=== PATIENT | female | born 1950 | race African-American/Black ===

== ENCOUNTER 2016-11-28 16:23 | Emergency (ER) | payer MEDICARE, OTHER ==
[~2016-11-28 16:23] MED LIST: DEPA500T3 PO; LISI10TA3 PO; SERO400T PO
[2016-11-28 16:25] VITALS: BP 169/82; PULSE 107; RESP 16; TEMP 98.2; O2SAT 99
--- NOTE | 2016-11-28 16:33 | PD ---
Physical Exam Date Seen by Provider: Nov 28, 2016 Time Seen by Provider: 16:30 Data Data Last Documented VS Vital Signs Date Time Temp Pulse Resp B/P Pulse Ox O2 Delivery O2 Flow Rate FiO2 11/28/16 16:56 97 11/28/16 16:25 98.2 107 16 169/82 [facility] Supervised Visit with MICHELLE: No Narrative Course 65 YO F with complaint of "daughter states that I'm acting strangely." Patient states this is a lie. She states that she has been taking all her medications as prescribed. Patient oriented to time, place, self. Patient endorses chronic pain, but denies other somatic complaints. Vitals reviewed. Patient seen in triage, awaiting bed placement. Silvana Cottrell Nov 28, 2016 16:33
--- NOTE | 2016-11-28 16:52 | PD ---
HPI Chief Complaint: Medical Clearance Time Seen by Provider: 16:36 Travel History International Travel<30 days: No Contact w/Intl Traveler<30days: No Traveled to known affect area: No History of Present Illness HPI The patient is a 65-year-old Br[place] female who presents to the emergency department for psychiatric evaluation. The patient states she was dropped off by her daughter for "acting strange". However, the patient states she lives alone, stated with her daughter last night, and that her daughter brought her to the emergency department today for psychiatric evaluation. The patient states she has not been acting strangely, she states every time she receives her check from the government, her daughter will drop her off at the emergency department. The patient does have a history of schizophrenia and states she has been compliant with her medications. She denies any suicidal ideation, homicidal ideation, hallucinations, or delusions. She denies any physical complaints including chest pain, shortness breath, nausea, vomiting, or abdominal pain. She does smoke marijuana occasionally, denies any alcohol use. The patient states she does not want to be seen by the psychiatric [facility] in the emergency department and that she has no current complaints. PFSH Past Medical History Arthritis: Yes Asthma: Yes Blood Disorders: No Bipolar Disorder: Yes Anxiety: Yes Depression: Yes Cardiovascular Problems: Yes (HTN) Cerebrovascular Accident: Yes (PER PAST HX) Diabetes: Yes Patient Takes Glucophage: No Diminished Hearing: No Endocrine: Yes Gastrointestinal Disorders: No Genitourinary: No Hepatitis: No Hypertension: Yes Immune Disorder: No Implanted Vascular Access Dvce: No Musculoskeletal: Yes Neurologic: Yes Psychiatric: Yes (Pt has history of psychiatric treatment/pt is followed by [facility]) Reproductive: No Respiratory: Yes Schizophrenia: Yes Sickle Cell Disease: No PNEUMOCCOCAL Vaccine (Year): 3 Menopausal: Yes : 2 Para: 2 Past Surgical History Cardiac Surgery: No Ear Surgery: No Endocrine Surgery: No Eye Surgery: No Genitourinary Surgery: No Gynecologic Surgery: No Neurologic Surgery: No Oral Surgery: No Thoracic Surgery: No Social History Alcohol Use: Yes (weekly) Tobacco Use: Yes (3 CIGARETTES DAILY) Substance Use: Yes (MARIJUANA) Allergies-Medications (Allergen,Severity, Reaction): Coded Allergies: No Known Allergies (Verified , 03/06/16) Reported Meds & Prescriptions Reported Meds & Active Scripts Active Reported Seroquel (Quetiapine Fumarate) 400 Mg Tab 600 Mg PO HS Lisinopril 10 Mg Tab 10 Mg PO DAILY Depakote ER (Divalproex Sodium) 500 Mg Srinivasa 500 Mg PO DAILY Review of Systems Except as stated in HPI: all other systems reviewed are Neg Cardiovascular: No: Chest Pain or Discomfort Respiratory: No: Shortness of Breath Gastrointestinal: No: Nausea, Vomiting, Abdominal Pain Neurologic: No: Change in Mentation Psychiatric: Positive: Disorder of Thought (history of schizophrenia), Substance Abuse (marijuana use occasionally), No: Suicidal Ideations, Mood Disorder, Homicidal Ideation, Other (denies any current hallucinations or delusions) Physical Exam Narrative GENERAL: Awake, alert, pleasant 65-year-old female who appears her stated age and is in no acute respiratory distress. SKIN: Focused skin assessment warm/dry. HEAD: Atraumatic. Normocephalic. EYES: Pupils equal and round. No injection or drainage. ENT: No nasal bleeding or discharge. Mucous membranes pink and moist. NECK: Trachea midline. No JVD. CARDIOVASCULAR: Regular rate and rhythm. No murmur appreciated. RESPIRATORY: No accessory muscle use. Clear to auscultation. Breath sounds equal bilaterally. MUSCULOSKELETAL: No obvious deformities. No clubbing. No cyanosis. No edema. NEUROLOGICAL: Awake and alert. No obvious cranial nerve deficits. Motor grossly within normal limits. Normal speech. Nonfocal. Patient is oriented to person, place, month, and expediter clerk. PSYCHIATRIC: Appropriate mood and affect; insight and judgment normal. Data Data Last Documented VS Vital Signs Date Time Temp Pulse Resp B/P Pulse Ox O2 Delivery O2 Flow Rate FiO2 11/28/16 16:25 98.2 107 16 169/82 99 MDM Medical Decision Making Medical Screen Exam Complete: Yes Emergency Medical Condition: Yes Medical Record Reviewed: Yes Differential Diagnosis Differential diagnosis includes schizoaffective disorder, schizophrenia, noncompliance, supratherapeutic Depakote level, substance induced mood disorder. Narrative Course I had a discussion with the patient regarding laboratory evaluation and psychiatric evaluation. However, the patient denies any physical complaints, is alert and oriented to person, place, month, and expediter clerk. She answers questions without difficulty and denies any suicidal ideation, homicidal ideation, hallucinations, or delusions. The patient would like to leave the emergency department and returned home. The patient meets no [place] act criteria. Therefore, patient will be discharged. She is advised to return if symptoms worsen or progress. We did attempt to find the daughter who brought her in to the emergency department, however, there is no family members in the waiting room or outside the emergency department when we attempted to find family. Diagnosis Primary Impression: Schizoaffective disorder Qualified Code: F25.9 - Schizoaffective disorder, unspecified type Additional Instructions: Follow-up with your primary physician and her psychiatrist. Return if symptoms worsen or progress. Med/Other Pt SpecificInfo: No Change to Meds Disposition: 01 DISCHARGE HOME Condition: Stable Ventura Starkey MD Nov 28, 2016 16:52
== END 2016-11-28 17:12 | disposition home or self-care (01) ==
LOC: NEPC 16:23
DX: F25.9 Schizoaffective disorder, unspecified (principal); I10 Essential (primary) hypertension; J45.909 Unspecified asthma, uncomplicated; M19.90 Unspecified osteoarthritis, unspecified site; F10.10 Alcohol abuse, uncomplicated; F17.210 Nicotine dependence, cigarettes, uncomplicated; F12.10 Cannabis abuse, uncomplicated
CPT/HCPCS: 99282

== ENCOUNTER 2017-03-28 18:09 | Emergency (ER) | payer MEDICARE, OTHER ==
[~2017-03-28] VITALS: Ht 162.6 cm; Wt 72.0 kg
[2017-03-28 18:11] VITALS: BP 192/93; PULSE 113; RESP 18; TEMP 97.6; O2SAT 96
[2017-03-29] MEDS ORDERED: BUSP10TA PO (10:25)
[2017-03-29] MEDS ORDERED: SERT-132 PO (10:25)
[2017-03-29] MEDS ORDERED: SERO300T PO (17:08)
[2017-03-29] MEDS ORDERED: BENZ0.5T PO (17:09)
[2017-03-29] MEDS ORDERED: PALI234P IM (17:10)
== END 2017-03-28 21:31 | disposition left against medical advice (07) ==
LOC: NED 18:09
DX: Z00.00 Encounter for general adult medical examination without abnormal findings (principal); Z53.21 Procedure and treatment not carried out due to patient leaving prior to being seen by health care provider

== ENCOUNTER 2017-03-29 09:28 | Inpatient (IN) | payer MEDICARE ==
[2017-03-29 09:30] VITALS: BP 172/100; PULSE 87; RESP 18; TEMP 98.8; O2SAT 99
[2017-03-29] MEDS ORDERED: SERT-132 PO (10:25)
[2017-03-29] MEDS ORDERED: BUSP10TA PO (10:25)
[2017-03-29 10:58] LABS: AUTOMATED NEUTROPHIL # 2.7 TH/MM3 (1.8-7.7); BASOPHIL % 0.4 % (0.0-2.0); EOSINOPHIL % 0.6 % (0.0-4.0); HEMATOCRIT 37.6 % (35.0-46.0); HEMO FLAGS AUTO DIFF; LYMPH % 45.9 % (9.0-44.0); LYMPHOCYTE # 3.2 TH/MM3 (1.0-4.8); MEAN CELL VOLUME 91.8 FL (80.0-100.0); MEAN CORPUSCULAR HEMOGLOBIN 31.2 PG (27.0-34.0); MEAN CORPUSCULAR HGB CONC 33.9 % (32.0-36.0); NEUT % 38.1 % (16.0-70.0); PLATELET COUNT 90 TH/MM3 (150-450); RED BLOOD COUNT 4.09 MIL/MM3 (4.00-5.30); RED CELL DISTRIBUTION WIDTH 15.5 % (11.6-17.2); WHITE BLOOD COUNT 7.1 TH/MM3 (4.0-11.0)
[2017-03-29 11:01] LABS: BLOOD, URINE NEG (NEG); GLUCOSE,URINE NEG (NEG); KETONE, URINE NEG (NEG); NITRITE,URINE NEG (NEG); SQUAMOUS EPITHELIAL CELL URINE <1 /hpf (0-5); URINE COLOR YELLOW (YELLW/STRAW)
--- NOTE | 2017-03-29 11:01 | PD ---
HPI Chief Complaint: Psychiatric Symptoms Time Seen by Provider: 10:53 Travel History International Travel<30 days: No Contact w/Intl Traveler<30days: No Traveled to known affect area: No History of Present Illness HPI 66yo F with PMH of schizoaffective disorder and bipolar disorder presents to the ED with c/o feeling depressed. Pt is here voluntarily and wants to be evaluated by psychiatrist. She does not have any suicidal thoughts right now. Denies any fever, chest pain, sob, n/v, abdominal pain, focal weakness or numbness. Denies any drug or alcohol use. PFSH Past Medical History Arthritis: Yes Asthma: Yes Blood Disorders: No Bipolar Disorder: Yes Anxiety: Yes Depression: Yes Cardiovascular Problems: Yes (HTN) Cerebrovascular Accident: Yes (PER PAST HX) Diabetes: Yes Patient Takes Glucophage: No Diminished Hearing: No Endocrine: Yes Gastrointestinal Disorders: No Genitourinary: No Hepatitis: No Hypertension: Yes Immune Disorder: No Implanted Vascular Access Dvce: No Musculoskeletal: Yes Neurologic: Yes Psychiatric: Yes (Pt has history of psychiatric treatment/pt is followed by [facility]) Reproductive: No Respiratory: Yes Schizophrenia: Yes Sickle Cell Disease: No Influenza Vaccination: No PNEUMOCCOCAL Vaccine (Year): 3 Menopausal: Yes : 2 Para: 2 Past Surgical History Cardiac Surgery: No Ear Surgery: No Endocrine Surgery: No Eye Surgery: No Genitourinary Surgery: No Gynecologic Surgery: No Neurologic Surgery: No Oral Surgery: No Thoracic Surgery: No Social History Alcohol Use: Yes (weekly) Tobacco Use: Yes Substance Use: Yes (MARIJUANA) Allergies-Medications (Allergen,Severity, Reaction): Coded Allergies: No Known Allergies (Verified Adverse Reaction, Unknown, 03/29/17) Reported Meds & Prescriptions Reported Meds & Active Scripts Active Reported Buspirone (Buspirone HCl) 10 Mg Tab 10 Mg PO TID Sertraline (Sertraline HCl) 50 Mg Tab 100 Mg PO DAILY Depakote ER (Divalproex Sodium) 500 Mg Srinivasa 500 Mg PO DAILY Review of Systems Except as stated in HPI: all other systems reviewed are Neg Physical Exam Narrative GENERAL: 66yo F not in distress. SKIN: Focused skin assessment warm/dry. HEAD: Atraumatic. Normocephalic. EYES: Pupils equal and round at 4mm bilaterally. EOMI. ENT: No nasal bleeding or discharge. Mucous membranes pink and moist. NECK: Trachea midline. No JVD. CARDIOVASCULAR: Regular rate and rhythm. No murmur appreciated. RESPIRATORY: No accessory muscle use. Clear to auscultation. Breath sounds equal bilaterally. GASTROINTESTINAL: Abdomen soft, non-tender, nondistended. MUSCULOSKELETAL: No obvious deformities. No clubbing. No cyanosis. No edema. NEUROLOGICAL: Awake and alert. No obvious cranial nerve deficits. Motor grossly within normal limits. Normal speech. PSYCHIATRIC: Appropriate mood and affect; insight and judgment normal. Data Data Last Documented VS Vital Signs Date Time Temp Pulse Resp B/P (MAP) Pulse Ox O2 Delivery O2 Flow Rate FiO2 03/29/17 13:16 95 16 99 Room Air 03/29/17 09:30 98.8 Orders Orders Complete Blood Count With Diff (03/29/17 09:36) Comprehensive Metabolic Panel (03/29/17 09:36) Urinalysis - C+S If Indicated (03/29/17 09:36) Psych Screen (03/29/17 09:36) Drug Screen, Random Urine (03/29/17 09:36) Diet Heart Healthy (03/29/17 Lunch) Metronidazole (Flagyl) (03/29/17 13:00) Labs Laboratory Tests Test 03/29/17 10:40 03/29/17 10:44 Blood Urea Nitrogen 11 MG/DL Creatinine 0.84 MG/DL Random Glucose 72 MG/DL Total Protein 8.5 GM/DL Albumin 3.6 GM/DL Calcium Level 8.5 MG/DL Alkaline Phosphatase 75 U/L Aspartate Amino Transf (AST/SGOT) 55 U/L Alanine Aminotransferase (ALT/SGPT) 37 U/L Total Bilirubin 0.3 MG/DL Sodium Level 138 MEQ/L Potassium Level 4.8 MEQ/L Chloride Level 106 MEQ/L Carbon Dioxide Level 26.3 MEQ/L Anion Gap 6 MEQ/L Estimat Glomerular Filtration Rate 82 ML/MIN White Blood Count 7.1 TH/MM3 Red Blood Count 4.09 MIL/MM3 Hemoglobin 12.7 GM/DL Hematocrit 37.6 % Mean Corpuscular Volume 91.8 FL Mean Corpuscular Hemoglobin 31.2 PG Mean Corpuscular Hemoglobin Concent 33.9 % Red Cell Distribution Width 15.5 % Platelet Count 90 TH/MM3 Mean Platelet Volume 11.1 FL Neutrophils (%) (Auto) 38.1 % Lymphocytes (%) (Auto) 45.9 % Monocytes (%) (Auto) 15.0 % Eosinophils (%) (Auto) 0.6 % Basophils (%) (Auto) 0.4 % Neutrophils # (Auto) 2.7 TH/MM3 Lymphocytes # (Auto) 3.2 TH/MM3 Monocytes # (Auto) 1.1 TH/MM3 Eosinophils # (Auto) 0.0 TH/MM3 Basophils # (Auto) 0.0 TH/MM3 CBC Comment AUTO DIFF Differential Comment AUTO DIFF CONFIRMED Platelet Estimate LOW Platelet Morphology Comment NORMAL Urine Color YELLOW Urine Turbidity CLEAR Urine pH 6.0 Urine Specific [place] 1.012 Urine Protein NEG mg/dL Urine Glucose (UA) NEG mg/dL Urine Ketones NEG mg/dL Urine Occult Blood NEG Urine Nitrite NEG Urine Bilirubin NEG Urine Urobilinogen 2.0 MG/DL Urine Leukocyte Esterase SMALL Urine RBC LESS THAN 1 /hpf Urine WBC 3 /hpf Urine Squamous Epithelial Cells <1 /hpf Urine Trichomonas RARE Microscopic Urinalysis Comment CULT NOT INDICATED Urine Opiates Screen NEG Urine Barbiturates Screen NEG Urine Amphetamines Screen NEG Urine Benzodiazepines Screen NEG Urine Cocaine Screen NEG Urine Cannabinoids Screen POS MDM Medical Decision Making Medical Screen Exam Complete: Yes Emergency Medical Condition: Yes Differential Diagnosis Depression vs. bipolar disorder Narrative Course 66yo F with history of schizoaffective and bipolar disorder presents for psych evaluation voluntarily. Grand daughter said she was admitted to psych last time and looking to stay in psych unit today. Denies any other complaints. Labs reviewed, no leukocytosis. Mild thrombocytopenia, a little less than baseline. AST mildly elevated but pt has no abdominal pain. Utox is positive for cannabinoids. UA showed rare urine trichomonas. Will cover with flagyl PO. Pt is medically clear for psych evaluation. Diagnosis Primary Impression: Schizoaffective disorder Qualified Codes: F25.0 - Schizoaffective disorder, bipolar type Additional Impression: Trichomoniasis She Xiao DO Mar 29, 2017 11:01
[2017-03-29 11:05] LABS: COMMENT (UR) CULT NOT INDICATED; CULTURE IF INDICATED CULT NOT INDICATED
[2017-03-29 11:34] LABS: PLATELET ESTIMATE SMEAR LOW (NORMAL); PLATELET MORPHOLOGY NORMAL (NORMAL); SCAN/DIFF AUTO DIFF CONFIRMED
[2017-03-29 12:22] LABS: ANION GAP 6 MEQ/L (5-15); BICARBONATE 26.3 MEQ/L (21.0-32.0); CHLORIDE 106 MEQ/L (98-107); GLOMERULAR FILTRATION RATE 82 ML/MIN (>89); SODIUM (NA) 138 MEQ/L (136-145)
[2017-03-29 12:23] LABS: ALKALINE PHOSPHATASE 75 U/L (45-117); ALT (GPT) 37 U/L (10-53); AST (GOT) 55 U/L (15-37); BLOOD UREA NITROGEN 11 MG/DL (7-18); POTASSIUM 4.8 MEQ/L (3.5-5.1); TOTAL BILIRUBIN ADULT 0.3 MG/DL (0.2-1.0)
[2017-03-29] MEDS ORDERED: metroNIDAZOLE 500 MG TAB PO ONE (13:00)
[2017-03-29 13:16] VITALS: BP 217/95; PULSE 95; RESP 16; O2SAT 99
[2017-03-29] MEDS ORDERED: LISINOPRIL 10 MG TAB PO ONE (13:45)
[2017-03-29 14:46] VITALS: BP 164/73; PULSE 97; RESP 16; O2SAT 98
[2017-03-29] MEDS ORDERED: LORazepam 2 MG/ML VIAL IM PRN (16:30)
[2017-03-29] MEDS ORDERED: diphenhydrAMINE HCL 50 MG CAP PO PRN (16:30)
[2017-03-29] MEDS ORDERED: diphenhydrAMINE HCL 50 MG/ML VIAL IM PRN (16:30)
[2017-03-29] MEDS ORDERED: ACETAMINOPHEN 325 MG TAB PO PRN (16:30)
[2017-03-29] MEDS ORDERED: MAGNESIUM HYDROXIDE SUSP 30 ML CUP PO PRN (16:30)
[2017-03-29] MEDS ORDERED: LORazepam 1 MG TAB PO PRN (16:30)
[2017-03-29] MEDS ORDERED: ALUMINUM/MAGNESIUM/SIMETH 30 ML CUP PO PRN (16:30)
--- NOTE | 2017-03-29 16:43 | HHI.HP ---
Provisional Diagnosis Admission Date Belva I. Schizoaffective disorder, bipolar type Certification of Person's Competence To Provide Express and Informed Consent I have personally examined Fay Lee , a [facility] on, Mar 29, 2017 16:34. Express and informed consent means consent voluntarily given in writing, by a competent person, after sufficient explanation and disclosure of the subject matter involved to enable the person to make a knowing and willful decision without any element of force, fraud, deceit, duress, or other form of constraint or coercion. This person is 18 years of age or older, is not now known to be incompetent to consent to treatment with a guardian advocate, and does not have a health care surrogate or proxy currently making medical treatment decisions. I have found this person to be one of the following: [X] Competent to provide express and informed consent, as defined above, for voluntary admission to this facility and is competent to provide express and informed consent for treatment. He/she has the consistent capacity to make well reasoned, willful, and knowing decisions concerning his or her medical or mental health treatment. The person fully and consistently understands the purpose of the admission for examination/placement and is fully capable of personally exercising all rights assured [place] Incompetent to provide express and informed consent to voluntary admission, and this is incompetent to provide express and informed consent to treatment. The person must be transferred to involuntary status and a petition for a guardian advocate filed with the Circuit Court. [] Refusing to provide express and informed consent to voluntary admission but is competent to provide express and informed consent for treatment. The person must be discharged or transferred to involuntary status. Form shall be completed within 24 hours of a person's arrival at the receiving facility and filed in the clinical record of each person: 1. Admitted on a voluntary basis 2. Permitted to provide express and informed consent to his/her own treatment 3. Allowed to transfer from involuntary to voluntary status 4. Prior to permitting a person to consent to his or her own treatment after having been previously found incompetent to consent to treatment. History of Present Illness Capacity: Has Capacity HPI 66-year-old female presents voluntarily with symptoms of depression and suicidal ideation. Patient is well known to the staff here at [facility] and has been admitted for psychotic illness on multiple occasions. Usually, she is manic, highly agitated, verbose and psychotic. She presented last night with symptoms of depression and suicidality and requested her family bring her back today. Apparently they had to wait a long time last night and gave up due to frustration. Patient intermittently describes suicidal thinking. She does admit to current symptoms of depressed mood, anhedonia, anxiety, insomnia, feelings of hopelessness and helplessness, decreased self-esteem, social withdrawal, decreased energy, and problems with concentration and attention. She has been smoking marijuana but this is felt to be a self medicating issue as the patient does not have a significant history of alcohol or drug abuse. Review of Systems ROS Limitations: Clinical Condition Psychiatric: COMPLAINS OF: Anxiety, Depression Except as stated in HPI: all other systems reviewed are Neg Past Psych History Psychological trauma history Unknown for psychological trauma. Patient has been admitted on multiple occasions for psychosis and agitation. Violence risk - others (6 mos) Minimal at this time Violence risk - self (6 mos) GENERAL: SKIN: Warm and dry. HEAD: Normocephalic. EYES: No scleral icterus. No injection or drainage. NECK: Supple, trachea midline. No JVD or lymphadenopathy. CARDIOVASCULAR: Regular rate and rhythm without murmurs, gallops, or rubs. RESPIRATORY: Breath sounds equal bilaterally. No accessory muscle use. GASTROINTESTINAL: Abdomen soft, non-tender, nondistended. MUSCULOSKELETAL: No cyanosis, or edema. BACK: Nontender without obvious deformity. No CVA tenderness. Substance Abuse History Drugs/Alcohol past 12 months Denied but is positive for cannabinoids. Past Family Social History Coded Allergies: No Known Allergies (Verified Adverse Reaction, Unknown, 03/29/17) Reported Medications Buspirone (Buspirone) 10 Mg Tab, 10 MG PO TID for Anxiety, TAB 0 Refills 03/29/17 Sertraline (Sertraline) 50 Mg Tab, 100 MG PO DAILY, #30 TAB 0 Refills 03/29/17 Divalproex ER (Depakote ER) 500 Mg Srinivasa, 500 MG PO DAILY for Control Seizures, #30 TAB 0 Refills 03/06/16 Discontinued Reported Medications Quetiapine (Seroquel) 400 Mg Tab, 600 MG PO HS, #60 TAB 0 Refills 03/06/16 Lisinopril (Lisinopril) 10 Mg Tab, 10 MG PO DAILY, #30 TAB 0 Refills 03/06/16 Family Psych History Positive for/psychotic illness Social History Patient is unemployed and disabled from work. She has a long history of diagnoses including schizophrenia, schizoaffective disorder, etc. her daughter and granddaughter are with her and spoke with this physician and the nurse, Pau. According to nurse Pau, it is quite unusual to see patient this depressed. Patient's Strengths (min. 2) Verbal and has access to healthcare. Physical Exam GENERAL: SKIN: Warm and dry. HEAD: Normocephalic. EYES: No scleral icterus. No injection or drainage. NECK: Supple, trachea midline. No JVD or lymphadenopathy. CARDIOVASCULAR: Regular rate and rhythm without murmurs, gallops, or rubs. RESPIRATORY: Breath sounds equal bilaterally. No accessory muscle use. GASTROINTESTINAL: Abdomen soft, non-tender, nondistended. MUSCULOSKELETAL: No cyanosis, or edema. BACK: Nontender without obvious deformity. No CVA tenderness. Vital Signs Vital Signs Date Time Temp Pulse Resp B/P (MAP) Pulse Ox O2 Delivery O2 Flow Rate FiO2 03/29/17 14:46 97 16 164/73 (103) 98 Room Air 03/29/17 09:30 98.8 Lab Results Test 03/29/17 10:40 03/29/17 10:44 Blood Urea Nitrogen 11 MG/DL Creatinine 0.84 MG/DL Random Glucose 72 MG/DL Total Protein 8.5 GM/DL Albumin 3.6 GM/DL Calcium Level 8.5 MG/DL Alkaline Phosphatase 75 U/L Aspartate Amino Transf (AST/SGOT) 55 U/L Alanine Aminotransferase (ALT/SGPT) 37 U/L Total Bilirubin 0.3 MG/DL Sodium Level 138 MEQ/L Potassium Level 4.8 MEQ/L Chloride Level 106 MEQ/L Carbon Dioxide Level 26.3 MEQ/L Anion Gap 6 MEQ/L Estimat Glomerular Filtration Rate 82 ML/MIN White Blood Count 7.1 TH/MM3 Red Blood Count 4.09 MIL/MM3 Hemoglobin 12.7 GM/DL Hematocrit 37.6 % Mean Corpuscular Volume 91.8 FL Mean Corpuscular Hemoglobin 31.2 PG Mean Corpuscular Hemoglobin Concent 33.9 % Red Cell Distribution Width 15.5 % Platelet Count 90 TH/MM3 Mean Platelet Volume 11.1 FL Neutrophils (%) (Auto) 38.1 % Lymphocytes (%) (Auto) 45.9 % Monocytes (%) (Auto) 15.0 % Eosinophils (%) (Auto) 0.6 % Basophils (%) (Auto) 0.4 % Neutrophils # (Auto) 2.7 TH/MM3 Lymphocytes # (Auto) 3.2 TH/MM3 Monocytes # (Auto) 1.1 TH/MM3 Eosinophils # (Auto) 0.0 TH/MM3 Basophils # (Auto) 0.0 TH/MM3 CBC Comment AUTO DIFF Differential Comment AUTO DIFF CONFIRMED Platelet Estimate LOW Platelet Morphology Comment NORMAL Urine Color YELLOW Urine Turbidity CLEAR Urine pH 6.0 Urine Specific [place] 1.012 Urine Protein NEG mg/dL Urine Glucose (UA) NEG mg/dL Urine Ketones NEG mg/dL Urine Occult Blood NEG Urine Nitrite NEG Urine Bilirubin NEG Urine Urobilinogen 2.0 MG/DL Urine Leukocyte Esterase SMALL Urine RBC LESS THAN 1 /hpf Urine WBC 3 /hpf Urine Squamous Epithelial Cells <1 /hpf Urine Trichomonas RARE Microscopic Urinalysis Comment CULT NOT INDICATED Urine Opiates Screen NEG Urine Barbiturates Screen NEG Urine Amphetamines Screen NEG Urine Benzodiazepines Screen NEG Urine Cocaine Screen NEG Urine Cannabinoids Screen POS Mental Status Examination Appearance: Appropriate Consciousness: Alert Orientation: x4 Motor Activity: Normal gait Speech: Unremarkable Language: Adequate Fund of Knowledge: Adequate Attention and Concentration: Adequate Memory: Unremarkable Mood: Sad Affect: Sad Thought Process & Associations: Intact Thought Content: Bizarre thinking, Ideas of reference Hallucination Type: None Delusion Type: None Suicidal Ideation: Yes Suicidal Plan: No Suicidal Intention: No Homicidal Ideation: No Homicidal Plan: No Homicidal Intention: No Insight: Fair Judgment: Impulsive Assessment & Plan Problem List: (1) Schizoaffective disorder, bipolar type ICD Codes: F25.0 - Schizoaffective disorder, bipolar type Assessment & Plan Estimated LOS: days. 66-year-old female with history of schizoaffective disorder/schizophrenia, currently depressed with multiple risk factors for suicide. In addition to suicidal ideation and symptoms of depression, she is of the age that puts her at greater risk for suicide. Her diagnosis puts her at risk for suicide. She has had recent medication changes which make her less stable. This is the second time she has asked to come to the emergency department in the last 24 hours. Therefore she is being admitted for further evaluation and treatment. This physician has ordered a CBC and comprehensive metabolic panel to determine if any infectious process or metabolic process is causing or contributing to her depression. Additionally, this physician ordered thyroid stimulating hormone levels, vitamin B-12 and vitamin D levels, to determine if deficiencies in these areas are causing or contributing to her depression. This physician also obtained a hospitalist consult as the patient has a history of multiple medical issues, including diabetes, and according to the medication reconciliation form, she is not on these medicines. An EKG was ordered to assess her cardiac conduction status prior to significantly altering her psychotropic medicines, which can adversely affect her cardiac conduction. This physician spoke with the patient's daughter, granddaughter and nurse, Pau. All are in agreement with this plan and all described the patient as being significantly depressed. Finally, case management will be involved to assist with further information gathering and disposition planning. Dane Prater MD Mar 29, 2017 16:43
[2017-03-29] MEDS ORDERED: DIVALPROEX SODIUM E.R. 500 MG TAB PO SCH (17:00)
[2017-03-29] MEDS ORDERED: SERO300T PO (17:08)
[2017-03-29] MEDS ORDERED: BENZ0.5T PO (17:09)
[2017-03-29] MEDS ORDERED: PALI234P IM (17:10)
[2017-03-29] MEDS: busPIRone HCL 10 MG TAB PO SCH (18:37)
[2017-03-29] MEDS: SERTRALINE HCL 100 MG TAB PO SCH (18:37)
[2017-03-29 18:41] VITALS: BP 121/66; PULSE 90; RESP 18; TEMP 97.8; O2SAT 98
[2017-03-29] MEDS ORDERED: QUEtiapine FUMARATE 300 MG TAB PO SCH (21:00)
[2017-03-30 05:56] VITALS: BP 141/63; PULSE 92; RESP 18; TEMP 98.1; O2SAT 99
[2017-03-30 08:38] LABS: AUTOMATED NEUTROPHIL # 1.5 TH/MM3 (1.8-7.7); BASOPHIL % 0.3 % (0.0-2.0); EOSINOPHIL % 1.1 % (0.0-4.0); LYMPH % 45.6 % (9.0-44.0); LYMPHOCYTE # 1.8 TH/MM3 (1.0-4.8); MEAN CELL VOLUME 90.4 FL (80.0-100.0); MEAN CORPUSCULAR HEMOGLOBIN 30.9 PG (27.0-34.0); MEAN CORPUSCULAR HGB CONC 34.2 % (32.0-36.0); MONO % 14.2 % (0.0-8.0); NEUT % 38.8 % (16.0-70.0); PLATELET COUNT 92 TH/MM3 (150-450); RED CELL DISTRIBUTION WIDTH 15.3 % (11.6-17.2); WHITE BLOOD COUNT 3.9 TH/MM3 (4.0-11.0)
[2017-03-30 08:46] LABS: HEMO FLAGS AUTO DIFF
[2017-03-30] MEDS: busPIRone HCL 10 MG TAB PO SCH ×2 (08:59→14:04)
[2017-03-30] MEDS: SERTRALINE HCL 100 MG TAB PO SCH (09:00)
[2017-03-30] MEDS ORDERED: DIVALPROEX SODIUM E.R. 500 MG TAB PO SCH (09:00)
[2017-03-30 09:27] LABS: ALT (GPT) 29 U/L (10-53); ANION GAP 9 MEQ/L (5-15); AST (GOT) 50 U/L (15-37); BICARBONATE 24.9 MEQ/L (21.0-32.0); BLOOD UREA NITROGEN 16 MG/DL (7-18); CHLORIDE 103 MEQ/L (98-107); GLOMERULAR FILTRATION RATE 72 ML/MIN (>89); POTASSIUM 3.9 MEQ/L (3.5-5.1); SODIUM (NA) 137 MEQ/L (136-145)
[2017-03-30 09:37] LABS: ALKALINE PHOSPHATASE 78 U/L (45-117); HDL CHOLESTEROL 43.2 MG/DL (40.0-60.0); LDL CHOLESTEROL 104 MG/DL (0-99); TOTAL BILIRUBIN ADULT 0.3 MG/DL (0.2-1.0)
[2017-03-30 09:40] LABS: PLATELET ESTIMATE SMEAR LOW (NORMAL); PLATELET MORPHOLOGY NORMAL (NORMAL); SCAN/DIFF AUTO DIFF CONFIRMED
--- NOTE | 2017-03-30 12:31 | HHI.DS ---
Psychiatry Discharge Summary Inpatient Psychiatric care?: Yes Advance Directive: No Reason Not Provided: DECLINED Mental Health AdvanceDirective: No Health Care Proxy: No Admission Admission Date Mar 29, 2017 at 16:30 Admission Diagnosis: (1) Cannabis abuse ICD Code: F12.10 - Cannabis abuse (2) Schizoaffective disorder, bipolar type ICD Code: F25.0 - Schizoaffective disorder, bipolar type Brief History 66-year-old female presents voluntarily with symptoms of depression and suicidal ideation. Patient is well known to the staff here at [place] and has been admitted for psychotic illness on multiple occasions. Usually, she is manic, highly agitated, verbose and psychotic. She presented last night with symptoms of depression and suicidality and requested her family bring her back today. Apparently they had to wait a long time last night and gave up due to frustration. Patient intermittently describes suicidal thinking. She does admit to current symptoms of depressed mood, anhedonia, anxiety, insomnia, feelings of hopelessness and helplessness, decreased self-esteem, social withdrawal, decreased energy, and problems with concentration and attention. She has been smoking marijuana but this is felt to be a self medicating issue as the patient does not have a significant history of alcohol or drug abuse. Tobacco Use In Past 30 Days: 4 or Less Cigarettes/Day Alcohol Use: Never Hospital Course Above brief history dictated by Dr. Dane Prater reviewed and agreed with. Patient seen by me today with nurse Casimiro. Patient did recognize me from multiple prior contacts over the years. States she was upset because she was not able to visit family in [facility] over things living because her children were busy with other activities and could not transporter up there. She states she slept well last night and those feelings of depression suicidality have resolved. He states she's been compliant with her medications. Compliant with her mental health appointments with Rigo CEDEÑO at [facility] outpatient. Denies any alcohol use but acknowledges frequent use of marijuana. She does have room place to return to. At this time patient no longer meets Fortune criteria will lift Fortune act patient to be discharged to herself. No Rx by me. Patient states she has sufficient supply of her own prescribed schedule medications at home. She is to follow-up with outpatient [facility]. Also recommend absolute abstinence, no marijuana. Referral also to NA Results Blood Pressure 141 / 63 Vital Signs Date Time Temp Pulse Resp B/P (MAP) Pulse Ox O2 Delivery O2 Flow Rate FiO2 03/30/17 05:56 98.1 92 18 141/63 (89) 99 03/29/17 14:46 Room Air Laboratory Tests Test 03/29/17 10:40 03/29/17 10:44 03/30/17 07:08 Random Glucose 72 MG/DL (74-106) Total Protein 8.5 GM/DL (6.4-8.2) 8.4 GM/DL (6.4-8.2) Aspartate Amino Transf (AST/SGOT) 55 U/L (15-37) 50 U/L (15-37) Estimat Glomerular Filtration Rate 82 ML/MIN (>89) 72 ML/MIN (>89) Platelet Count 90 TH/MM3 (150-450) 92 TH/MM3 (150-450) Mean Platelet Volume 11.1 FL (7.0-11.0) Lymphocytes (%) (Auto) 45.9 % (9.0-44.0) 45.6 % (9.0-44.0) Monocytes (%) (Auto) 15.0 % (0.0-8.0) 14.2 % (0.0-8.0) Monocytes # (Auto) 1.1 TH/MM3 (0-0.9) Platelet Estimate LOW (NORMAL) LOW (NORMAL) Urine Leukocyte Esterase SMALL (NEG) Urine Trichomonas RARE (NONE) Urine Cannabinoids Screen POS (NEG) White Blood Count 3.9 TH/MM3 (4.0-11.0) Neutrophils # (Auto) 1.5 TH/MM3 (1.8-7.7) Calcium Level 8.3 MG/DL (8.5-10.1) Triglycerides Level 157 MG/DL (42-150) LDL Cholesterol 104 MG/DL (0-99) 25-Hydroxy Vitamin D Total 15.9 ng/ML (30-100) Thyroid Stimulating Hormone 3rd Gen 4.790 uIU/ML (0.358-3.740) Laboratory Results Test 03/30/17 07:08 Cholesterol Level 179 MG/DL (120-200) HDL Cholesterol 43.2 MG/DL (40.0-60.0) LDL Cholesterol 104 MG/DL (0-99) Triglycerides Level 157 MG/DL (42-150) Summary of Procedures None done Pending results at discharge: No Medications # of Antipsychotic meds at D/C: 0 Approp Antipsych med options 1 - Minimum of three failed multiple trials of monotherapy. 2 - Documented plan to taper to monotherapy due to previous use of multiple meds OR cross-taper in progress at D/C. 3 - Documentation of augmentation of Clozapine. 4 - Justification other than those listed in allowable values 1-3, document here : Discharge Discharge Date: Mar 30, 2017 Discharge Diagnosis: (1) Cannabis abuse Diagnosis: Secondary ICD Code: F12.10 - Cannabis abuse Status: Acute (2) Schizoaffective disorder, bipolar type Diagnosis: Principal ICD Code: F25.0 - Schizoaffective disorder, bipolar type Pt Condition on Discharge: Stable Discharge Disposition: Discharge Home Discharge Instructions Diet Instructions: Heart Healthy Diet Activities you can perform: Regular-No Restrictions Scheduled Appointment: Sachin Rollins Discharge Time > 30 minutes Mental Status Examination Appearance: Appropriate Consciousness: Alert Orientation: x4 Motor Activity: Normal gait Speech: Unremarkable Language: Adequate Fund of Knowledge: Adequate Attention and Concentration: Adequate Memory: Unremarkable Mood: Sad Affect: Sad Thought Process & Associations: Intact Thought Content: Bizarre thinking, Ideas of reference Hallucination Type: None Delusion Type: None Suicidal Ideation: Yes Suicidal Plan: No Suicidal Intention: No Homicidal Ideation: No Homicidal Plan: No Homicidal Intention: No Insight: Fair Judgment: Impulsive Discharge/Advance Care Plan Health Problems: (1) Schizoaffective disorder, bipolar type Goals to promote your health * To prevent worsening of your condition and complications * To maintain your health at the optimal level Directions to meet your goals Take your medications as prescribed Follow your dietary instruction Follow activity as directed Keep your appointments as scheduled Take your immunizations and boosters as scheduled If your symptoms worsen call your PCP, if no PCP go to Urgent Care Center or Emergency Room For 16/11 questions related to your inpatient stay or results of tests pending at discharge, please contact Dr. Ludin Mora at Smoking is Dangerous to Your Health. Avoid second hand smoking Ludin Mora MD Mar 30, 2017 12:31
[2017-03-30 14:20] LABS: HEMOGLOBIN A1a 1.3 %; HEMOGLOBIN A1b 1.7 %; HEMOGLOBIN Ao 84.5 %; HEMOGLOBIN P3 3.8 %
== END 2017-03-30 15:45 | disposition home or self-care (01) | DRG 885 ==
LOC: NEPC 09:28 → NEDA 16:30 → H260 18:08
PROVIDERS: ADMIT Psychiatry & Neurology Psychiatry; ATTEND Psychiatry & Neurology Psychiatry
DX: F25.0 Schizoaffective disorder, bipolar type (principal); D69.6 Thrombocytopenia, unspecified; R45.851 Suicidal ideations; E11.9 Type 2 diabetes mellitus without complications; I10 Essential (primary) hypertension; A59.9 Trichomoniasis, unspecified; F41.9 Anxiety disorder, unspecified; F12.10 Cannabis abuse, uncomplicated; Z72.0 Tobacco use; J45.909 Unspecified asthma, uncomplicated; M19.90 Unspecified osteoarthritis, unspecified site; Z86.73 Personal history of transient ischemic attack (TIA), and cerebral infarction without residual deficits
CPT/HCPCS: 80053; 80061; 80307; 81001; 82306; 82607; 83036; 84443; 85025

== ENCOUNTER 2017-12-14 14:38 | Inpatient (IN) ==
[2017-12-14] MEDS ORDERED: Sod Chloride 0.9% Inj 1,000 ML IV.SIG ONE (14:48)
[2017-12-14 15:36] LABS: Baso % (Auto) 0.2 % (0.0-2.0); Eos % (Auto) 0.2 % (0.0-4.0); Hematocrit 35.2 % (35.0-46.0); Hemoglobin 12.2 gm/dL (11.6-15.3); Mean Corpuscular HGB Conc 34.7 % (32.0-36.0); Mean Corpuscular Hemoglobin 31.3 pg (27.0-34.0); Mean Corpuscular Volume 90.4 fL (80.0-100.0); Mean Platelet Volume 10.2 fL (7.0-11.0); Mono # (Auto) 0.9 th/mm3 (0.0-0.9); Mono % (Auto) 14.3 % (0.0-8.0); Neut # (Auto) 2.2 th/mm3 (1.8-7.7); Neut % (Auto) 36.3 % (16.0-70.0); Platelet Count 108 th/mm3 (150-450); Red Blood Count 3.89 mil/mm3 (4.00-5.30); Red Cell Distribution Width 14.9 % (11.6-17.2)
[2017-12-14 15:47] LABS: INR 1.1 Ratio; Prothrombin Time 10.7 sec (9.8-11.6)
[2017-12-14 15:50] LABS: Amphetamine Screen,Urine Neg (Neg); Barbiturate Screen,Urine Neg (Neg); Cannabinoid Screen,Urine Pos (Neg); Cocaine Screen,Urine Neg (Neg)
[2017-12-14 15:53] LABS: Bilirubin,Urine Negative (Negative); Clarity,Urine Clear (Clear); Color,Urine Yellow (Yellw/Straw); Glucose,Urine (UA) Negative (Negative); Hyaline Casts,Urine 7 /lpf (0-3); Leukocyte Esterase,Urine Negative (Negative); Mucus,Urine Few /lpf (Occasional); Nitrite,Urine Negative (Negative); Specific Gravity,Urine 1.016 (1.002-1.035); Squamous Epithelial Cell,Urine <1 /hpf (0-5); Urobilinogen,Urine 4 or Greater mg/dL (Less than 2)
[2017-12-14 15:56] LABS: Opiate Screen,Urine Neg (Neg)
--- NOTE | 2017-12-14 16:04 | CT ---
EXAM DATE: 12/14/2017 3:54 PM EDT AGE/SEX: 67 years / Female INDICATIONS: Altered mental status, confused CLINICAL DATA: This is the patient's initial encounter. Patient reports that signs and symptoms have been present for 1 day and indicates a pain score of 0/10. MEDICAL/SURGICAL HISTORY: None. None. RADIATION DOSE: 35.37 CTDI (mGy) COMPARISON: No prior exams available for comparison. TECHNIQUE: CT of the head without contrast. Using automated exposure control and adjustment of the mA and/or kV according to patient size, radiation dose was kept as low as reasonably achievable to ob tain optimal diagnostic quality images. DICOM format image data is available electronically for revi ew and comparison. FINDINGS: There is no evidence for intracranial hemorrhage, mass effect, mass lesions, or edema. The visualize d bony structures appear intact. Slight degree of brain atrophy is seen. Slight periventricular whit e matter changes are seen nonspecific mostly consistent with chronic small vessel ischemic changes. There are no signs of acute infarction for technique. CONCLUSION: Slight chronic small vessel ischemic and atrophic changes. . Electronically signed by: Mary Hadny MD 12/14/2017 4:02 PM EDT
[2017-12-14 16:05] LABS: Alanine Aminotransferase 18 U/L (10-53); Albumin 3.4 g/dL (3.4-5.0); Alkaline Phosphatase 55 U/L (45-117); Anion Gap 12 meq/L (5-15); Aspartate Aminotransferase 54 U/L (15-37); Blood Urea Nitrogen 24 mg/dL (7-18); Calcium 8.3 mg/dL (8.5-10.1); Carbon Dioxide 25.3 meq/L (21.0-32.0); Chloride 98 meq/L (98-107); Glomerular Filtration Rate 39 mL/min (>89); Glucose,Random 127 mg/dL (74-106); Sodium 135 meq/L (136-145); Total Protein 8.9 g/dL (6.4-8.2)
[2017-12-14 16:09] LABS: Potassium 2.6 meq/L (3.5-5.1)
[2017-12-14 16:16] LABS: Creatine Kinase 1191 U/L (26-192)
--- NOTE | 2017-12-14 16:18 | ED ---
HPI General Chief Complaint: Syncope Stated Complaint: Medical Time Seen by Provider: 12/14/17 14:48 Source: EMS Mode of arrival: EMS Limitations: altered mental status History of Present Illness HPI narrative: 66-year-old female per EMS was found down in the parking lot at [place], at that when she was tachycardic to 160s, also had an Accu-Chek of 137. The patient apparently was not visualize witnessed and so is unknown if the patient collapse had a syncopal episode or had a seizure or a if any of the above occurred. EMS performed a 12-lead EKG which showed lateral T-wave inversions in 1 aVL V4 V5 and V6. MD complaint: confusion and decreased responsiveness Onset (ago): unknown Timing confirmed by: other Severity: moderate Consistency of symptoms: waxing and waning Context: unknown Associated symptoms: other Treatments prior to arrival: IV fluid and other (Of note the patient family eventually came to the ER and stated that she had been treated for UTI and had been causing her to be altered recently) Related Data Allergies Allergy/AdvReac Type Severity Reaction Status Date / Time No Known Allergies Allergy Unverified 12/14/17 14:43 Review of Systems ROS Unobtainable ROS Unobtainable: unobtainable due to mental condition and unobtainable due to mental status PMFSH History History 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 SKIN: Warm and dry. HEAD: Atraumatic. Normocephalic. EYES: Pupils equal and round. No scleral icterus. No injection or drainage. ENT: No nasal bleeding or discharge... No hemotympanum bilaterally.. Dry oral mucous membranes NECK: Trachea midline. No JVD. CARDIOVASCULAR: Tachycardic rate and regular rhythm. no rubs or gallops RESPIRATORY: No accessory muscle use. Clear to auscultation. Breath sounds equal bilaterally. GASTROINTESTINAL: Abdomen soft, non-tender, nondistended. No rebound or guarding MUSCULOSKELETAL: Extremities without clubbing, cyanosis, or edema. No obvious deformities. NEUROLOGICAL: Awake and alertX1..... Normal speech. PSYCHIATRIC: Appropriate mood and affect; insight and judgment normal. Course Initial Documented Vital Signs Temperature 99.4 F 12/14/17 14:44 Pulse Rate 118 H 12/14/17 14:44 Respiratory Rate 28 H 12/14/17 14:44 Blood Pressure 132/61 12/14/17 14:44 Pulse Oximetry 97 12/14/17 14:44 Last Documented Vital Signs Temperature 99.4 F 12/14/17 14:44 Pulse Rate 91 H 12/14/17 16:17 Respiratory Rate 16 12/14/17 16:17 Blood Pressure 128/60 12/14/17 16:17 Pulse Oximetry 100 12/14/17 16:17 Medical Decision Making MDM Narrative Medical decision making narrative: CBC does not have any leukocytosis, no anemia , mild thrombocytopenia 108,000. Coagulation profile is within normal limits First set of cardiac enzymes negative. Normal lactic acid 1.2 , hypokalemia of 2.6, decreased renal function with a GFR of 39 and a creatinine of 1.6 tTtal CPK 1181 Ammonia of 45, may not be of any significance Of note although CK-MB was elevated at 25.8 the CK-MB percentage is only 2.2 which is more important index Medical Screen Exam Complete: Yes Emergency Medical Condition: Yes Differential Diagnosis Differential Diagnosis: Intracranial hemorrhage versus CVA versus STEMI versus rhabdo versus heat stroke versus electrolyte imbalance Medical Records Medical records reviewed: Yes I reviewed the patient's medical records. Lab Data Lab results reviewed: Yes I reviewed the patient's lab results. Result diagrams: 12/14/17 15:00 12/14/17 15:00 Lab Results 12/14/17 12/14/17 12/14/17 Range/Units 15:00 15:00 15:00 WBC 6.0 (4.0-11.0) th/mm3 RBC 3.89 L (4.00-5.30) mil/mm3 Hgb 12.2 (11.6-15.3) gm/dL Hct 35.2 (35.0-46.0) % MCV 90.4 (80.0-100.0) fL MCH 31.3 (27.0-34.0) pg MCHC 34.7 (32.0-36.0) % RDW 14.9 (11.6-17.2) % Plt Count 108 L (150-450) th/mm3 MPV 10.2 (7.0-11.0) fL Neut % (Auto) 36.3 (16.0-70.0) % Lymph % (Auto) 49.0 H (9.0-44.0) % Har[place] % (Auto) 14.3 H (0.0-8.0) % Eos % (Auto) 0.2 (0.0-4.0) % Baso % (Auto) 0.2 (0.0-2.0) % Neut # (Auto) 2.2 (1.8-7.7) th/mm3 Lymph # (Auto) 3.0 (1.0-4.8) th/mm3 Harney # (Auto) 0.9 (0.0-0.9) th/mm3 Eos # (Auto) 0.0 (0.0-0.4) th/mm3 Baso # (Auto) 0.0 (0.0-0.2) th/mm3 WBC Differential . Differential Comment Auto diff final PT 10.7 (9.8-11.6) sec INR 1.1 Ratio APTT 23.0 L (24.3-30.1) sec Sodium (136-145) meq/L Potassium (3.5-5.1) meq/L Chloride (98-107) meq/L Carbon Dioxide (21.0-32.0) meq/L Anion Gap (5-15) meq/L BUN (7-18) mg/dL Creatinine (0.50-1.00) mg/dL Estimated GFR (>89) mL/min Random Glucose (74-106) mg/dL Lactic Acid (0.4-2.0) mmol/L Calcium (8.5-10.1) mg/dL Total Bilirubin (0.2-1.0) mg/dL AST (15-37) U/L ALT (10-53) U/L Alkaline Phosphatase (45-117) U/L Ammonia (11-32) mcmol/L Total Creatine Kinase 1191 H (26-192) U/L CK-MB (CK-2) 25.8 H (0.5-3.6) ng/mL CK-MB (CK-2) % 2.2 (0.0-4.0) % Troponin I Less than 0.02 L (0.02-0.05) ng/mL Total Protein (6.4-8.2) g/dL Albumin (3.4-5.0) g/dL Urine Color (Yellw/Straw) Urine Clarity (Clear) Urine pH (5.0-8.5) Ur Specific [place] (1.002-1.035) Urine Protein (Neg-Trace) mg/dL Urine Glucose (UA) (Negative) mg/dL Urine Ketones (Negative) mg/dL Urine Occult Blood (Negative) Urine Nitrate (Negative) Urine Bilirubin (Negative) Urine Urobilinogen (Less than 2) mg/dL Ur Leukocyte Esterase (Negative) Urine RBC (0-3) /hpf Urine WBC (0-5) /hpf Ur Squamous Epith Cells (0-5) /hpf Hyaline Casts (0-3) /lpf Granular Casts (None) /lpf Urine Mucus (Occasional) /lpf Micro UA Comment Urine Culture Comments Urine Opiates Screen (Neg) Ur Barbiturates Screen (Neg) Ur Amphetamines Screen (Neg) U Benzodiazepines Scrn (Neg) Urine Cocaine Screen (Neg) U Cannabinoids Screen (Neg) Serum Alcohol Less than 3 (0-5) mg/dL 12/14/17 12/14/17 12/14/17 Range/Units 15:00 15:00 15:15 WBC (4.0-11.0) th/mm3 RBC (4.00-5.30) mil/mm3 Hgb (11.6-15.3) gm/dL Hct (35.0-46.0) % MCV (80.0-100.0) fL MCH (27.0-34.0) pg MCHC (32.0-36.0) % RDW (11.6-17.2) % Plt Count (150-450) th/mm3 MPV (7.0-11.0) fL Neut % (Auto) (16.0-70.0) % Lymph % (Auto) (9.0-44.0) % Harney % (Auto) (0.0-8.0) % Eos % (Auto) (0.0-4.0) % Baso % (Auto) (0.0-2.0) % Neut # (Auto) (1.8-7.7) th/mm3 Lymph # (Auto) (1.0-4.8) th/mm3 [place]ney # (Auto) (0.0-0.9) th/mm3 Eos # (Auto) (0.0-0.4) th/mm3 Baso # (Auto) (0.0-0.2) th/mm3 WBC Differential Differential Comment PT (9.8-11.6) sec INR Ratio APTT (24.3-30.1) sec Sodium 135 L (136-145) meq/L Potassium 2.6 L* (3.5-5.1) meq/L Chloride 98 (98-107) meq/L Carbon Dioxide 25.3 (21.0-32.0) meq/L Anion Gap 12 (5-15) meq/L BUN 24 H (7-18) mg/dL Creatinine 1.61 H (0.50-1.00) mg/dL Estimated GFR 39 L (>89) mL/min Random Glucose 127 H (74-106) mg/dL Lactic Acid 1.2 (0.4-2.0) mmol/L Calcium 8.3 L (8.5-10.1) mg/dL Total Bilirubin 0.4 (0.2-1.0) mg/dL AST 54 H (15-37) U/L ALT 18 (10-53) U/L Alkaline Phosphatase 55 (45-117) U/L Ammonia 45 H (11-32) mcmol/L Total Creatine Kinase (26-192) U/L CK-MB (CK-2) (0.5-3.6) ng/mL CK-MB (CK-2) % (0.0-4.0) % Troponin I (0.02-0.05) ng/mL Total Protein 8.9 H (6.4-8.2) g/dL Albumin 3.4 (3.4-5.0) g/dL Urine Color (Yellw/Straw) Urine Clarity (Clear) Urine pH (5.0-8.5) Ur Specific [place] (1.002-1.035) Urine Protein (Neg-Trace) mg/dL Urine Glucose (UA) (Negative) mg/dL Urine Ketones (Negative) mg/dL Urine Occult Blood (Negative) Urine Nitrate (Negative) Urine Bilirubin (Negative) Urine Urobilinogen (Less than 2) mg/dL Ur Leukocyte Esterase (Negative) Urine RBC (0-3) /hpf Urine WBC (0-5) /hpf Ur Squamous Epith Cells (0-5) /hpf Hyaline Casts (0-3) /lpf Granular Casts (None) /lpf Urine Mucus (Occasional) /lpf Micro UA Comment Urine Culture Comments Urine Opiates Screen (Neg) Ur Barbiturates Screen (Neg) Ur Amphetamines Screen (Neg) U Benzodiazepines Scrn (Neg) Urine Cocaine Screen (Neg) U Cannabinoids Screen (Neg) Serum Alcohol (0-5) mg/dL 12/14/17 12/14/17 Range/Units 15:15 15:15 WBC (4.0-11.0) th/mm3 RBC (4.00-5.30) mil/mm3 Hgb (11.6-15.3) gm/dL Hct (35.0-46.0) % MCV (80.0-100.0) fL MCH (27.0-34.0) pg MCHC (32.0-36.0) % RDW (11.6-17.2) % Plt Count (150-450) th/mm3 MPV (7.0-11.0) fL Neut % (Auto) (16.0-70.0) % Lymph % (Auto) (9.0-44.0) % [place] % (Auto) (0.0-8.0) % Eos % (Auto) (0.0-4.0) % Baso % (Auto) (0.0-2.0) % Neut # (Auto) (1.8-7.7) th/mm3 Lymph # (Auto) (1.0-4.8) th/mm3 [place] # (Auto) (0.0-0.9) th/mm3 Eos # (Auto) (0.0-0.4) th/mm3 Baso # (Auto) (0.0-0.2) th/mm3 WBC Differential Differential Comment PT (9.8-11.6) sec INR Ratio APTT (24.3-30.1) sec Sodium (136-145) meq/L Potassium (3.5-5.1) meq/L Chloride (98-107) meq/L Carbon Dioxide (21.0-32.0) meq/L Anion Gap (5-15) meq/L BUN (7-18) mg/dL Creatinine (0.50-1.00) mg/dL Estimated GFR (>89) mL/min Random Glucose (74-106) mg/dL Lactic Acid (0.4-2.0) mmol/L Calcium (8.5-10.1) mg/dL Total Bilirubin (0.2-1.0) mg/dL AST (15-37) U/L ALT (10-53) U/L Alkaline Phosphatase (45-117) U/L Ammonia (11-32) mcmol/L Total Creatine Kinase (26-192) U/L CK-MB (CK-2) (0.5-3.6) ng/mL CK-MB (CK-2) % (0.0-4.0) % Troponin I (0.02-0.05) ng/mL Total Protein (6.4-8.2) g/dL Albumin (3.4-5.0) g/dL Urine Color Yellow (Yellw/Straw) Urine Clarity Clear (Clear) Urine pH 5.0 (5.0-8.5) Ur Specific [place] 1.016 (1.002-1.035) Urine Protein Negative (Neg-Trace) mg/dL Urine Glucose (UA) Negative (Negative) mg/dL Urine Ketones Negative (Negative) mg/dL Urine Occult Blood Negative (Negative) Urine Nitrate Negative (Negative) Urine Bilirubin Negative (Negative) Urine Urobilinogen 4 or greater (Less than 2) mg/dL Ur Leukocyte Esterase Negative (Negative) Urine RBC 1 (0-3) /hpf Urine WBC 1 (0-5) /hpf Ur Squamous Epith Cells <1 (0-5) /hpf Hyaline Casts 7 (0-3) /lpf Granular Casts 1 (None) /lpf Urine Mucus Few H (Occasional) /lpf Micro UA Comment Cath-culture not ind Urine Culture Comments Cath-cult not ind Urine Opiates Screen Neg (Neg) Ur Barbiturates Screen Neg (Neg) Ur Amphetamines Screen Neg (Neg) U Benzodiazepines Scrn Pos H (Neg) Urine Cocaine Screen Neg (Neg) U Cannabinoids Screen Pos H (Neg) Serum Alcohol (0-5) mg/dL Imaging Data Radiologist's impression: Chest X-Ray 12/14/17 14:48 CONCLUSION: Underinflated examination with bibasilar interstitial opacities. This could represent interstitial pulmonary edema in the appropriate clinical setting. Head CT 12/14/17 14:50 CONCLUSION: Slight chronic small vessel ischemic and atrophic changes. . ECG Data EKG Prior to Arrival: No Attestation: I personally reviewed and interpreted this ECG as follows: Prior ECG tracings: not available for review Interpretation: Sinus tachycardia, 106 bpm, nonspecific ST-T wave changes Discharge Plan Discharge Disposition Patient Disposition: 30 Still Patient Discharge Condition Condition: Fair Discharge Details Diagnosis: Dehydration, Rhabdomyolysis, Acute hypokalemia Physicians Team ED Provider: Jean Barker Primary Care Provider: Ludin St Status ED Status: With Doctor
[2017-12-14 16:29] LABS: CKMB Percent 2.2 % (0.0-4.0); Creatine Kinase MB 25.8 ng/mL (0.5-3.6)
--- NOTE | 2017-12-14 16:36 | XR ---
EXAM DATE: 12/14/2017 3:25 PM EDT AGE/SEX: 67 years / Female INDICATIONS: Chest pain, short of breath, confusion CLINICAL DATA: This is the patient's initial encounter. Patient reports that signs and symptoms have been present for 1 day and indicates a pain score of Nonresponsive. MEDICAL/SURGICAL HISTORY: Non-responsive. Abdominal aortic aneurysm repair. COMPARISON: No prior exams available for comparison. FINDINGS: Portable AP views of the chest demonstrate a normal size cardiac silhouette. Lungs are underinflated and there are bibasilar interstitial opacities. No pleural effusion or pneumothorax is identified. Boogie joy and soft tissues demonstrate no acute finding. There are degenerative changes of the thoracic spi ne. CONCLUSION: Underinflated examination with bibasilar interstitial opacities. This could represent interstitial pu lmonary edema in the appropriate clinical setting. Electronically signed by: Ludin Rushing MD 12/14/2017 4:35 PM EDT
--- NOTE | 2017-12-14 17:53 | P.HP ---
History of Present Illness Service: [facility] hospitalist service Primary Care Physician: Ludin St, DO Chief Complaint: Apparent syncopal episodes?, Change in mental status. History of Present Illness: Patient is a very pleasant 67-year-old female with history of manic/depression on sertraline and Depakote, lives with her daughter who apparently this afternoon left the house. When asked about this patient states that she was just going to the store to check something out. Patient is amnesic of event. All she recalls was that she was laying on the floor and was brought in here. Patient denies any recent fever chills nausea vomiting or diarrhea. There was no incontinence. No seizures reported. Daughter arrived home and patient - Mom was not home. By instinct -daughter called the hospital -and true enough with her gut feeling patient was in the emergency room. Patient does not recall how she got here. Per daughter patient has been more forgetful lately "needs to be cued a lot". Daughter states that she gets like this more confused whenever she has a urinary tract infection. She was seen last Wednesday because she was acting odd and was seen by her PCP Dr. St and was diagnosed with UTI. Patient was started on Bactrim DS p.o. twice daily to be completed tonight. Her repeat UA here on admission today was normal. Daughter states that she takes sertraline and Depakote she is not sure of the amount though and is compliant with medications. Review of Systems Stated no fever no chills daughter states she is getting more forgetful and needs to be cued lately more than usual No nausea vomiting, no headache Patient denies any urinary symptoms denies any diarrhea denies any weakness PMFSH - History History Provided By: Medical Record - Medical History Medical History: Medical History (Last Reviewed 12/15/17 @ 09:06 by Mil Solis) Manic depression Medical history unknown - Tobacco History Smoking Status: Current every day smoker (About 3 cigarettes per day) Cigarettes Per Day: 3 - Alcohol History How Often Do You Have a Drink Containing Alcohol: Never - Substance Use History Substance History: No History of Abuse - Travel History Recent Travel in the [facility] Within the Last 8 Weeks: No Recent Travel Out of the Country Within the Last 8 Weeks: No Medications and Allergies Active Medications: Active Medications Potassium Chloride/Dextrose/Sod Cl (D5w/Ns + Kcl 20 Meq Inj) 1,000 mls @ 100 mls/hr IV.CONT .Q10H ABILIO Potassium Chloride (Kcl 20 Meq Premix Inj) 20 meq in 100 mls @ 50 mls/hr IV.SIG ONCE ONE Stop: 12/14/17 19:37 Potassium Chloride (Klor-Con 10) 30 meq PO ONCE ONE Stop: 12/14/17 17:40 Sodium Chloride (Ns Flush) 2 ml IV.FLUSH UNSCH PRN PRN Reason: FLUSH AFTER USING IV ACCESS Allergies Allergy/AdvReac Type Severity Reaction Status Date / Time No Known Allergies Allergy Unverified 12/14/17 14:43 Home Medications Medication Instructions Recorded Confirmed Type benztropine 2 mg PO HS 12/15/17 12/15/17 History buspirone 15 mg PO TID 12/15/17 12/15/17 History divalproex 1,000 mg PO HS 12/15/17 12/15/17 History quetiapine 600 mg PO HS 12/15/17 12/15/17 History sertraline 100 mg PO QAM 12/15/17 12/15/17 History Exam Vital signs: Vital Signs 12/14/17 14:44 12/14/17 14:51 12/14/17 15:47 Temperature 99.4 F Pulse Rate 118 H 114 H Respiratory Rate 28 H Blood Pressure 132/61 Pulse Oximetry 97 97 12/14/17 16:17 Temperature Pulse Rate 91 H Respiratory Rate 16 Blood Pressure 128/60 Pulse Oximetry 100 Intake & Output 12/13/17 12/14/17 12/14/17 18:59 06:59 18:59 Weight 72.575 kg Narrative: Patient is currently awake alert with blunted affect speech soft but clear follows all commands oriented to person place and year and time identified daughter at bedside Anicteric sclerae pink palpebral conjunctiva no facial asymmetry tongue midline dry oral mucosa neck was supple no nuchal rigidity chest lungs bilateral breath sounds no rales no wheezes Regular rhythm abdomen is soft good bowel sounds no guarding no rigidity extremities no clubbing no cyanosis no edema moves all extremities equally with good strength gait testing deferred grossly no sensory deficit Results - Labs CBC & Chem 7: 12/14/17 15:00 12/16/17 11:04 Labs: Laboratory Results - last 24 hr 12/14/17 12/14/17 12/14/17 15:00 15:00 15:00 WBC 6.0 RBC 3.89 L Hgb 12.2 Hct 35.2 MCV 90.4 MCH 31.3 MCHC 34.7 RDW 14.9 Plt Count 108 L MPV 10.2 Neut % (Auto) 36.3 Lymph % (Auto) 49.0 H [place] % (Auto) 14.3 H Eos % (Auto) 0.2 Baso % (Auto) 0.2 Neut # (Auto) 2.2 Lymph # (Auto) 3.0 [place] # (Auto) 0.9 Eos # (Auto) 0.0 Baso # (Auto) 0.0 WBC Differential . Differential Comment Auto diff final PT 10.7 INR 1.1 APTT 23.0 L Sodium Potassium Chloride Carbon Dioxide Anion Gap BUN Creatinine Estimated GFR Random Glucose Lactic Acid Calcium Total Bilirubin AST ALT Alkaline Phosphatase Ammonia Total Creatine Kinase 1191 H CK-MB (CK-2) 25.8 H CK-MB (CK-2) % 2.2 Troponin I Less than 0.02 L Total Protein Albumin Urine Color Urine Clarity Urine pH Ur Specific [place] Urine Protein Urine Glucose (UA) Urine Ketones Urine Occult Blood Urine Nitrate Urine Bilirubin Urine Urobilinogen Ur Leukocyte Esterase Urine RBC Urine WBC Ur Squamous Epith Cells Hyaline Casts Granular Casts Urine Mucus Micro UA Comment Urine Culture Comments Urine Opiates Screen Ur Barbiturates Screen Ur Amphetamines Screen U Benzodiazepines Scrn Urine Cocaine Screen U Cannabinoids Screen Serum Alcohol Less than 3 12/14/17 12/14/17 12/14/17 15:00 15:00 15:15 WBC RBC Hgb Hct MCV MCH MCHC RDW Plt Count MPV Neut % (Auto) Lymph % (Auto) [place] % (Auto) Eos % (Auto) Baso % (Auto) Neut # (Auto) Lymph # (Auto) [place] # (Auto) Eos # (Auto) Baso # (Auto) WBC Differential Differential Comment PT INR APTT Sodium 135 L Potassium 2.6 L* Chloride 98 Carbon Dioxide 25.3 Anion Gap 12 BUN 24 H Creatinine 1.61 H Estimated GFR 39 L Random Glucose 127 H Lactic Acid 1.2 Calcium 8.3 L Total Bilirubin 0.4 AST 54 H ALT 18 Alkaline Phosphatase 55 Ammonia 45 H Total Creatine Kinase CK-MB (CK-2) CK-MB (CK-2) % Troponin I Total Protein 8.9 H Albumin 3.4 Urine Color Urine Clarity Urine pH Ur Specific [place] Urine Protein Urine Glucose (UA) Urine Ketones Urine Occult Blood Urine Nitrate Urine Bilirubin Urine Urobilinogen Ur Leukocyte Esterase Urine RBC Urine WBC Ur Squamous Epith Cells Hyaline Casts Granular Casts Urine Mucus Micro UA Comment Urine Culture Comments Urine Opiates Screen Ur Barbiturates Screen Ur Amphetamines Screen U Benzodiazepines Scrn Urine Cocaine Screen U Cannabinoids Screen Serum Alcohol 12/14/17 12/14/17 15:15 15:15 WBC RBC Hgb Hct MCV MCH MCHC RDW Plt Count MPV Neut % (Auto) Lymph % (Auto) [place] % (Auto) Eos % (Auto) Baso % (Auto) Neut # (Auto) Lymph # (Auto) [place] # (Auto) Eos # (Auto) Baso # (Auto) WBC Differential Differential Comment PT INR APTT Sodium Potassium Chloride Carbon Dioxide Anion Gap BUN Creatinine Estimated GFR Random Glucose Lactic Acid Calcium Total Bilirubin AST ALT Alkaline Phosphatase Ammonia Total Creatine Kinase CK-MB (CK-2) CK-MB (CK-2) % Troponin I Total Protein Albumin Urine Color Yellow Urine Clarity Clear Urine pH 5.0 Ur Specific [place] 1.016 Urine Protein Negative Urine Glucose (UA) Negative Urine Ketones Negative Urine Occult Blood Negative Urine Nitrate Negative Urine Bilirubin Negative Urine Urobilinogen 4 or greater Ur Leukocyte Esterase Negative Urine RBC 1 Urine WBC 1 Ur Squamous Epith Cells <1 Hyaline Casts 7 Granular Casts 1 Urine Mucus Few H Micro UA Comment Cath-culture not ind Urine Culture Comments Cath-cult not ind Urine Opiates Screen Neg Ur Barbiturates Screen Neg Ur Amphetamines Screen Neg U Benzodiazepines Scrn Pos H Urine Cocaine Screen Neg U Cannabinoids Screen Pos H Serum Alcohol - Imaging Impressions Chest X-Ray 12/14/17 14:48 CONCLUSION: Underinflated examination with bibasilar interstitial opacities. This could represent interstitial pulmonary edema in the appropriate clinical setting. Head CT 12/14/17 14:50 CONCLUSION: Slight chronic small vessel ischemic and atrophic changes. . Caprini VTE Risk Assessment Caprini VTE Risk Assessment: Moderate/High Risk (score >= 2) Caprini Risk Assessment Model: Point Value = 1 Point Value = 2 Point Value = 3 Point Value = 5 Age 41-60 Minor surgery BMI > 25 kg/m2 Swollen legs Varicose veins or History of unexplained or recurrent spontaneous Oral contraceptives or hormone replacement Sepsis (< 1 month) Serious lung disease, including pneumonia (< 1 month) Abnormal pulmonary function Acute myocardial infarction Congestive heart failure (< 1 month) History of inflammatory bowel disease Medical patient at bed rest Age 61-74 Arthroscopic surgery Major open surgery (> 45 min) Laparoscopic surgery (> 45 min) Malignancy Confined to bed (> 72 hours) Immobilizing plaster cast Central venous access Age >= 75 History of VTE Family history of VTE Factor V Leiden Prothrombin [id number] Lupus anticoagulant Anticardiolipin antibodies Elevated serum homocysteine Heparin-induced thrombocytopenia Other congenital or acquired thrombophilia Stroke (< 1 month) Elective arthroplasty Hip, pelvis, or leg fracture Acute spinal cord injury (< 1 month) Prophylaxis Regimen: Total Risk Factor Score Risk Level Prophylaxis Regimen 0-1 Low Early ambulation 2 Moderate Order ONE of the following: *Sequential Compression Device (SCD) *Heparin 5000 units SQ BID 3-4 Higher Order ONE of the following medications: *Heparin 5000 units SQ TID *Enoxaparin/Lovenox 40 mg SQ daily (WT < 150 kg, CrCl > 30 mL/min) *Enoxaparin/Lovenox 30 mg SQ daily (WT < 150 kg, CrCl > 10-29 mL/min) *Enoxaparin/Lovenox 30 mg SQ BID (WT < 150 kg, CrCl > 30 mL/min) AND/OR *Sequential Compression Device (SCD) 5 or more Highest Order ONE of the following medications: *Heparin 5000 units SQ TID (Preferred with Epidurals) *Enoxaparin/Lovenox 40 mg SQ daily (WT < 150 kg, CrCl > 30 mL/min) *Enoxaparin/Lovenox 30 mg SQ daily (WT < 150 kg, CrCl > 10-29 mL/min) *Enoxaparin/Lovenox 30 mg SQ BID (WT < 150 kg, CrCl > 30 mL/min) AND *Sequential Compression Device (SCD) Assessment and Plan - Plan 67-year-old female presenting with Change in mental status possible apparent syncopal episode questionable seizure - now more awake- pr daughter Head CT was negative We will check MRI of the brain, check an EEG, carotid US, echo Check TSH B12 folate level- neurocognitive evaluation in a.m. rule out starting dementia Status post fall, syncopal episode rhabdomyolysis ? SZ patient received 1 L normal saline here at the ER. Start IV normal saline at 100 cc with potassium incorporation Recheck CK level in a.m. Check carotid ultrasound 2D echo. Check a d-dimer. If positive consider doing a CTA to rule out PE Check orthostatics in am Acute kidney injury. History of hypertension- Patient received 1 L normal saline bolus We will start IV fluid normal saline 100 cc an hour follow BMP On review of medications she is on hydrochlorothiazide. Will discontinue this per daughter who is a IT LEAD- she takes this irrregularly but did take this last 2 days monitor BP- if needs to start - will start on another type- not diuretic Hypokalemia - K 2.6 IV potassium 20 mEq. x 1 give p.o. potassium p.o. 1 and recheck electrolytes in the morning -On review of EMR patient apparently was on hydrochlorothiazide. Will discontinue this IVF with KCL History of manic/Depression - per daughter was on Sertraline and Depakote - we will confirm dose and restart - john restart her Depakote at 500 mg hs, Seroquel 50 mg daily Superficial skin abrasions status post fall on the left forearm and left knee -Bacitracin twice daily to areas. REcent UTI - completed course of bActrim - repeat UA now + cannabinoids- on UA - patient denies use PT eval and treat in am Heparin bid SQ for dvt prophylaxis
--- NOTE | 2017-12-14 18:52 | MR ---
EXAM DATE: 12/14/2017 6:43 PM EDT AGE/SEX: 67 years / Female INDICATIONS: . Fall. CLINICAL DATA: This is the patient's subsequent encounter. Patient reports that signs and symptoms h ave been present for 1 day and indicates a pain score of 0/10. MEDICAL/SURGICAL HISTORY: None. None. COMPARISON: [facility] [place], CT HEAD W/O CONTRAST, 12/14/2017. . TECHNIQUE: Multiplanar, multisequence examination of the brain was performed without contrast. FINDINGS: Cerebrum: The ventricles are normal for age. No evidence of midline shift, mass lesion, hemorrhage or acute infarction. No extraaxial fluid collections are seen. The pituitary gland and suprasellar cistern are normal in configuration. White Matter: No significant signal abnormalities are seen in the white matter. Posterior Fossa: The cerebellum and brainstem are intact. The 4th ventricle is midline. The cerebel lopontine angle is unremarkable. The cerebellar tonsils are normal in position. Diffusion Imaging: No focal areas of restricted diffusion are seen. No evidence of acute infarction . Extracranial: The visualized portions of the orbits and paranasal sinuses are unremarkable. CONCLUSION: 1. Negative noncontrast MRI of the brain. Electronically signed by: Minh Brantley MD 12/14/2017 6:51 PM EDT
[2017-12-14] MEDS: KCL 20 mEq/D5W/NaCl 0.9% Inj 1,000 ML IV.CONT SCH (19:20)
--- NOTE | 2017-12-14 19:55 | US ---
EXAM DATE: 12/14/2017 7:47 PM EDT AGE/SEX: 67 years / Female INDICATIONS: Syncope. CLINICAL DATA: This is the patient's initial encounter. Patient reports that signs and symptoms have been present for 1 day and indicates a pain score of 0/10. MEDICAL/SURGICAL HISTORY: . Syncope. . Unknown. COMPARISON: No prior exams available for comparison. VELOCITY PARAMETERS: ICA/CCA Ratio: Right 0.9 , Left 1.5 ICA: Right 74.6 cm/sec, Left 91.3 cm/sec CCA: Right 81.4 cm/sec, Left 60.9 cm/sec ECA: Right 114 cm/sec, Left 76.4 cm/sec Vertebral: Right 36 cm/sec antegrade, Left 40.4 cm/sec antegrade FINDINGS: Right Carotid: No significant plaque is visualized.The waveforms are within normal limits. Left Carotid: No significant plaque is visualized. The waveforms are within normal limits. Other: None. CONCLUSION: 1. Right Internal Carotid Artery: Findings indicate <50% stenosis. 2. Left Internal Carotid Artery: Findings indicate <50% stenosis. Electronically signed by: Minh Brantley MD 12/14/2017 7:53 PM EDT
[2017-12-14] MEDS ORDERED: Potassium Chlor 20 mEq Premix 20 MEQ/100 ML PIGGYBACK IV.SIG ONE (20:00)
[2017-12-14] MEDS: Heparin - SQ 10,000 UNITS/ML Vial SQ SCH (20:11)
[2017-12-14] MEDS: Divalproex 500 MG ER Tablet PO SCH (20:11)
--- NOTE | 2017-12-14 23:41 | ECG ---
Date Performed: 12/14/2017 Time Performed: 15:26:13 PTAGE: 67 years EKG: SINUS TACHYCARDIA MINIMAL VOLTAGE CRITERIA FOR LVH, CONSIDER NORMAL VARIANT NONSPECIFIC T-W AVE ABNORMALITY ABNORMAL RHYTHM ECG PREVIOUS TRACING : 11/27/2014 19.43 Compared to previous tracing, rate has increased, QT no lo nger prolonged DOCTOR: Alexis Roper Interpretating Date/Time 12/14/2017 23:40:04
[2017-12-15] MEDS: KCL 20 mEq/D5W/NaCl 0.9% Inj 1,000 ML IV.CONT SCH ×2 (06:34→15:16)
--- NOTE | 2017-12-15 08:45 | P.PN ---
Subjective Interval history: Follow-up for encephalopathy, syncope. The patient is currently awake, alert, oriented to person, [facility] in [place], president [place], but states the year is 2016. Patient states she remembers leaving the house to go to the store yesterday, and she remembers being very hot in the parking lot. She states she feels like she got overheated. She does not actually remember passing out. She states she does remember being transported to the emergency room. Discussed the patient's UDS positive for marijuana and benzos, the patient admits to smoking marijuana yesterday prior to going to store. Today she denies any headache, lightheadedness, dizziness, chest pain, shortness breath, or abdominal complaints. She reports compliance with her medications. She denies any recent changes to her medications. Physical Exam Vital signs: Vital Signs 12/14/17 14:44 12/14/17 14:51 12/14/17 15:47 Temperature 99.4 F Pulse Rate 118 H 114 H Respiratory Rate 28 H Blood Pressure 132/61 Pulse Oximetry 97 97 12/14/17 16:17 12/14/17 19:23 12/14/17 23:29 Temperature 98.1 F Pulse Rate 91 H 90 84 Respiratory Rate 16 20 16 Blood Pressure 128/60 166/70 H 119/58 L Pulse Oximetry 100 95 12/15/17 04:00 12/15/17 08:00 Temperature 98.1 F 97.8 F Pulse Rate 76 73 Respiratory Rate 18 16 Blood Pressure 114/57 L 132/63 Pulse Oximetry 100 98 Intake & Output 12/14/17 12/15/17 12/15/17 18:59 06:59 18:59 Intake Total 2380 / 2380 Output Total 200 / 200 Balance 2180 / 2180 Weight 72.575 kg 72.575 kg Intake: IV 2100 / 2100 D5W/NS + KCL 20 mEq Inj 1,000 1000 / 1000 ML @ 100 mls/hr IV.CONT .Q10H ABILIO Rx#:[id number] KCl 20 mEq Premix Inj 20 meq In 100 / 100 100 ml @ 50 mls/hr IV.SIG ONCE ONE Rx#:[id number] Oral 280 / 280 Output: Urine 200 / 200 Other: Weight On Admission 72.575 kg Narrative: GENERAL: Well-nourished, well-developed pleasant female patient in NAD. SKIN: Warm and dry. No rash. HEENT: Normocephalic. Atraumatic. Pupils equal and round. Mucous membranes pink and moist. NECK: Supple. Trachea midline. CARDIOVASCULAR: Regular rate and rhythm. No murmur appreciated. RESPIRATORY: No accessory muscle use. Clear to auscultation. Breath sounds equal bilaterally. GASTROINTESTINAL: Abdomen soft, non-tender, nondistended. Normoactive bowel sounds x4. MUSCULOSKELETAL: No obvious deformities. Extremities without clubbing, cyanosis , or edema. NEUROLOGICAL: Awake and alert, oriented x 3/4. No obvious cranial nerve deficits. Motor grossly within normal limits. Moving all extremities spontaneously. Normal speech. PSYCHIATRIC: Appropriate mood and affect; insight and judgment fair. - Urinary Catheter Management Indwelling Urethral Catheter Cath placed during this visit: yes Reason for continuing: Hourly intake/output Insertion date: 12/14/17 Insertion time: 14:50 Results - Labs CBC & Chem 7: 12/14/17 15:00 12/15/17 08:30 Laboratory Results - last 24 hr 12/14/17 12/14/17 12/14/17 15:00 15:00 15:00 WBC 6.0 RBC 3.89 L Hgb 12.2 Hct 35.2 MCV 90.4 MCH 31.3 MCHC 34.7 RDW 14.9 Plt Count 108 L MPV 10.2 Neut % (Auto) 36.3 Lymph % (Auto) 49.0 H [place] % (Auto) 14.3 H Eos % (Auto) 0.2 Baso % (Auto) 0.2 Neut # (Auto) 2.2 Lymph # (Auto) 3.0 [place] # (Auto) 0.9 Eos # (Auto) 0.0 Baso # (Auto) 0.0 WBC Differential . Differential Comment Auto diff final PT 10.7 INR 1.1 APTT 23.0 L D-Dimer Quant (PE/DVT) Sodium Potassium Chloride Carbon Dioxide Anion Gap BUN Creatinine Estimated GFR Random Glucose Lactic Acid Calcium Total Bilirubin AST ALT Alkaline Phosphatase Ammonia Total Creatine Kinase 1191 H CK-MB (CK-2) 25.8 H CK-MB (CK-2) % 2.2 Troponin I Less than 0.02 L B-Natriuretic Peptide Total Protein Albumin Urine Color Urine Clarity Urine pH Ur Specific [place] Urine Protein Urine Glucose (UA) Urine Ketones Urine Occult Blood Urine Nitrate Urine Bilirubin Urine Urobilinogen Ur Leukocyte Esterase Urine RBC Urine WBC Ur Squamous Epith Cells Hyaline Casts Granular Casts Urine Mucus Micro UA Comment Urine Culture Comments Urine Opiates Screen Ur Barbiturates Screen Ur Amphetamines Screen U Benzodiazepines Scrn Urine Cocaine Screen U Cannabinoids Screen Serum Alcohol Less than 3 12/14/17 12/14/17 12/14/17 15:00 15:00 15:00 WBC RBC Hgb Hct MCV MCH MCHC RDW Plt Count MPV Neut % (Auto) Lymph % (Auto) [place] % (Auto) Eos % (Auto) Baso % (Auto) Neut # (Auto) Lymph # (Auto) [place] # (Auto) Eos # (Auto) Baso # (Auto) WBC Differential Differential Comment PT INR APTT D-Dimer Quant (PE/DVT) Sodium 135 L Potassium 2.6 L* Chloride 98 Carbon Dioxide 25.3 Anion Gap 12 BUN 24 H Creatinine 1.61 H Estimated GFR 39 L Random Glucose 127 H Lactic Acid Calcium 8.3 L Total Bilirubin 0.4 AST 54 H ALT 18 Alkaline Phosphatase 55 Ammonia 45 H Total Creatine Kinase CK-MB (CK-2) CK-MB (CK-2) % Troponin I B-Natriuretic Peptide 7 Total Protein 8.9 H Albumin 3.4 Urine Color Urine Clarity Urine pH Ur Specific [place] Urine Protein Urine Glucose (UA) Urine Ketones Urine Occult Blood Urine Nitrate Urine Bilirubin Urine Urobilinogen Ur Leukocyte Esterase Urine RBC Urine WBC Ur Squamous Epith Cells Hyaline Casts Granular Casts Urine Mucus Micro UA Comment Urine Culture Comments Urine Opiates Screen Ur Barbiturates Screen Ur Amphetamines Screen U Benzodiazepines Scrn Urine Cocaine Screen U Cannabinoids Screen Serum Alcohol 12/14/17 12/14/17 12/14/17 15:00 15:15 15:15 WBC RBC Hgb Hct MCV MCH MCHC RDW Plt Count MPV Neut % (Auto) Lymph % (Auto) [place] % (Auto) Eos % (Auto) Baso % (Auto) Neut # (Auto) Lymph # (Auto) [place] # (Auto) Eos # (Auto) Baso # (Auto) WBC Differential Differential Comment PT INR APTT D-Dimer Quant (PE/DVT) 0.28 Sodium Potassium Chloride Carbon Dioxide Anion Gap BUN Creatinine Estimated GFR Random Glucose Lactic Acid 1.2 Calcium Total Bilirubin AST ALT Alkaline Phosphatase [place]mon[place] Total Creatine Kinase CK-MB (CK-2) CK-MB (CK-2) % Troponin I B-Natriuretic Peptide Total Protein Albumin Urine Color Urine Clarity Urine pH Ur Specific [place] Urine Protein Urine Glucose (UA) Urine Ketones Urine Occult Blood Urine Nitrate Urine Bilirubin Urine Urobilinogen Ur Leukocyte Esterase Urine RBC Urine WBC Ur Squamous Epith Cells Hyaline Casts Granular Casts Urine Mucus Micro UA Comment Urine Culture Comments Urine Opiates Screen Neg Ur Barbiturates Screen Neg Ur Amphetamines Screen Neg U Benzodiazepines Scrn Pos H Urine Cocaine Screen Neg U Cannabinoids Screen Pos H Serum Alcohol 12/14/17 15:15 WBC RBC Hgb Hct MCV MCH MCHC RDW Plt Count MPV Neut % (Auto) Lymph % (Auto) [place] % (Auto) Eos % (Auto) Baso % (Auto) Neut # (Auto) Lymph # (Auto) [place] # (Auto) Eos # (Auto) Baso # (Auto) WBC Differential Differential Comment PT INR APTT D-Dimer Quant (PE/DVT) Sodium Potassium Chloride Carbon Dioxide Anion Gap BUN Creatinine Estimated GFR Random Glucose Lactic Acid Calcium Total Bilirubin AST ALT Alkaline Phosphatase [place] Total Creatine Kinase CK-MB (CK-2) CK-MB (CK-2) % Troponin I B-Natriuretic Peptide Total Protein Albumin Urine Color Yellow Urine Clarity Clear Urine pH 5.0 Ur Specific [place] 1.016 Urine Protein Negative Urine Glucose (UA) Negative Urine Ketones Negative Urine Occult Blood Negative Urine Nitrate Negative Urine Bilirubin Negative Urine Urobilinogen 4 or greater Ur Leukocyte Esterase Negative Urine RBC 1 Urine WBC 1 Ur Squamous Epith Cells <1 Hyaline Casts 7 Granular Casts 1 Urine Mucus Few H Micro UA Comment Cath-culture not ind Urine Culture Comments Cath-cult not ind Urine Opiates Screen Ur Barbiturates Screen Ur Amphetamines Screen U Benzodiazepines Scrn Urine Cocaine Screen U Cannabinoids Screen Serum Alcohol - Imaging Impressions Carotid Doppler Study 12/14/17 00:00 CONCLUSION: 1. Right Internal Carotid Artery: Findings indicate <50% stenosis. 2. Left Internal Carotid Artery: Findings indicate <50% stenosis. Head MRI 12/14/17 00:00 CONCLUSION: 1. Negative noncontrast MRI of the brain. Chest X-Ray 12/14/17 14:48 CONCLUSION: Underinflated examination with bibasilar interstitial opacities. This could represent interstitial pulmonary edema in the appropriate clinical setting. Head CT 12/14/17 14:50 CONCLUSION: Slight chronic small vessel ischemic and atrophic changes. . Assessment and Plan - Plan 67-year-old female presenting with Acute Encephalopathy with Syncope: questionable seizure. Symptoms now much improved. -UDS positive for benzos and cannabinoids (patient admits to smoking marijuana prior to event) -Head CT, brain MRI reviewed and unremarkable -Carotid U/S with < 50% stenosis bilaterally -Check EEG and Echo -TSH, B12, and folate wnl -neurocognitive evaluation ordered, possible dementia -Patient improving with IVF hydration -Consult PT/ST Mild Rhabdomyolysis: suspect secondary to fall, possible seizure. -Given IVF bolus in the ED -Continue IVF hydration -Trend CK, 1191 --> 1579 -Continue to monitor Acute kidney injury- -Continue on IVF hydration -avoid nephrotoxins -will discontinue patient's HCTZ -monitor BMP Hypokalemia - K 2.6 -Given IV and po KCl replacement -Repeat K wnl -Monitor History of manic/Depression - per daughter was on Sertraline and Depakote, will continue - check valproic acid level Superficial skin abrasions status post fall on the left forearm and left knee -Bacitracin twice daily to areas. Recent UTI - completed course of bactrim - repeat UA negative Marijuana Use: acute. -UDS positive for cannabinoids -extensively counseled on cessation DVT Prophylaxis: Heparin sq
[2017-12-15] MEDS ORDERED: QUEtiapine 25 MG Tablet PO SCH (09:00)
[2017-12-15] MEDS: Divalproex 500 MG ER Tablet PO SCH (09:27)
[2017-12-15 09:28] LABS: Valproic Acid 84 mcg/mL (50-100)
[2017-12-15] MEDS: Heparin - SQ 10,000 UNITS/ML Vial SQ SCH ×2 (09:47→20:53)
[2017-12-15 09:54] LABS: Carbon Dioxide 21.5 meq/L (21.0-32.0); Potassium 4.2 meq/L (3.5-5.1)
[2017-12-15 10:13] LABS: Thyroid Stimulating Hormone 0.778 uIU/mL (0.358-3.740)
[2017-12-15 11:07] LABS: CKMB Percent 0.4 % (0.0-4.0); Creatine Kinase MB 7.1 ng/mL (0.5-3.6)
[2017-12-15] MEDS: Sertraline 100 MG Tablet PO SCH (11:10)
--- NOTE | 2017-12-15 17:26 | ECHRPT ---
Indication: CVA/TIA CONCLUSIONS Normal left ventricular size. Wall thickness is measured at the upper limits of normal. The left ventricular systolic function is normal with an estimated ejection fraction in the range of 55-60%. No regional wall motion abnormalities are present. Trace mitral valve regurgitation. Trace aortic valve regurgitation. There is mild tricuspid valve regurgitation. The estimated pulmonary arterial pressure is 40 mmHg. BP: / HR: Rhythm: Sinus MEASUREMENTS (Male / Female) Normal Values Technical Quality:Fair 2D ECHO LV Diastolic Diameter PLAX 5.1 cm 4.2 - 5.9 / 3.9 - 5.3 cm LV Systolic Diameter PLAX 3.7 cm IVS Diastolic Thickness 0.8 cm 0.6 - 1.0 / 0.6 - 0.9 cm LVPW Diastolic Thickness 0.8 cm 0.6 - 1.0 / 0.6 - 0.9 cm LV Relative Wall Thickness 0.3 RV Internal Dim ED PLAX 2.4 cm LVOT Diameter 1.7 cm Aortic Root Diameter 2.4 cm LA Systolic Diameter LX 3.5 cm 3.0 - 4.0 / 2.7 - 3.8 cm M-MODE AV Cusp Separation MM 1.6 cm DOPPLER AV Peak Velocity 131.0 cm/s AV Peak Gradient 6.9 mmHg AV Mean Gradient 3.0 mmHg AV Velocity Time Integral 22.5 cm AI Peak Velocity 373.0 cm/s AI Peak Gradient 55.7 mmHg AI Pressure Half Time 382.0 ms LVOT Peak Velocity 71.4 cm/s LVOT Peak Gradient 2.0 mmHg LVOT Velocity Time Integral 11.9 cm AV Area Cont Eq vti 1.2 cm AV Area Cont Eq pk 1.2 cm Mitral E Point Velocity 92.8 cm/s Mitral A Point Velocity 94.8 cm/s Mitral E to A Ratio 1.0 LV E' Lateral Velocity 8.7 cm/s Mitral E to LV E' Lateral Ratio 10.7 LV E' Septal Velocity 6.0 cm/s Mitral E to LV E' Septal Ratio 15.4 TR Peak Velocity 293.0 cm/s TR Peak Gradient 34.3 mmHg Right Atrial Pressure 10.0 mmHg Pulmonary Artery Systolic Pressu 44.3 mmHg Right Ventricular Systolic Press 44.3 mmHg PV Peak Velocity 75.9 cm/s PV Peak Gradient 2.3 mmHg FINDINGS LEFT VENTRICLE Normal left ventricular size. Wall thickness is measured at the upper limits of normal. The left ventricular systolic function is normal with an estimated ejection fraction in the range of 55-60%. No regional wall motion abnormalities are present. RIGHT VENTRICLE Normal right ventricular size and systolic function. LEFT ATRIUM The left atrial size is normal. RIGHT ATRIUM The right atrial size is normal. ATRIAL SEPTUM No atrial level shunt is demonstrated by color flow Doppler interrogation. AORTA The aortic root and proximal ascending aorta are normal in size on limited imaging. MITRAL VALVE Trace mitral valve regurgitation. AORTIC VALVE Trace aortic valve regurgitation. TRICUSPID VALVE There is mild tricuspid valve regurgitation. The estimated pulmonary arterial pressure is 40 mmHg. PULMONARY VALVE No pulmonary valve regurgitation or stenosis. VESSELS The inferior vena cava is normal in size. PERICARDIUM No pericardial effusion. Cal Bañuelos MD (Electronically Signed) Final Date:15 December 2017 17:25
[2017-12-15] MEDS ORDERED: Benztropine 2 MG Tablet PO SCH (21:00)
[2017-12-15] MEDS ORDERED: Divalproex 500 MG ER Tablet PO SCH (21:00)
--- NOTE | 2017-12-15 21:05 | MG ---
cc: Florencio Wagner MD EEG RECORD NUMBER: [id number] 7-8 Hz posterior rhythm 10-40 microvolts, slow eye movements. Occasional fast frequency frontal artifact occurring. Synchronous waveforms with wakeful and drowsy state. Reduced driving with photic stimulation. Single lead EKG showing sinus rhythm. INTERPRETATION: Mild encephalopathy in drowsy state. Clinical correlation. Florencio Wagner MD MG/ct , 08:54 PM , 08:58 PM
[2017-12-16] MEDS: KCL 20 mEq/D5W/NaCl 0.9% Inj 1,000 ML IV.CONT SCH ×2 (00:48→11:30)
[2017-12-16] MEDS: Heparin - SQ 10,000 UNITS/ML Vial SQ SCH (08:18)
[2017-12-16] MEDS: Sertraline 100 MG Tablet PO SCH (08:18)
--- NOTE | 2017-12-16 09:45 | P.PN ---
Subjective Interval history: Follow-up for syncope, dehydration, DYLAN, rhabdomyolysis. Patient reports feeling much better today. She denies any medical complaints including no headache, lightheadedness, neck pain, chest pain, shortness of breath, or abdominal complaints. She wants to go home today. Discussed continuing oral hydration after discharge, patient verbalized understanding. Also discussed changes to antihypertensive medications. Physical Exam Vital signs: Vital Signs 12/15/17 12:00 12/15/17 16:00 12/15/17 20:00 Temperature 98.1 F 98.4 F 98.0 F Pulse Rate 76 76 89 Respiratory Rate 16 16 19 Blood Pressure 148/72 H 155/69 H 135/65 Pulse Oximetry 100 100 97 12/15/17 23:58 12/16/17 00:05 12/16/17 04:00 Temperature 98.2 F 98.7 F Pulse Rate 82 85 77 Respiratory Rate 19 18 Blood Pressure 144/64 H 168/79 H Pulse Oximetry 95 98 12/16/17 07:57 12/16/17 08:07 12/16/17 08:09 Temperature 99.2 F Pulse Rate 74 100 H 78 Respiratory Rate 18 Blood Pressure 184/91 H Pulse Oximetry 98 Intake & Output 12/15/17 12/16/17 12/16/17 18:59 06:59 18:59 Output Total 900 / 900 Balance -900 / -900 Output: Urine Amount (Catheter) 900 / 900 Indwelling Urethral Catheter 900 / 900 Other: # Voids 2 # Bowel Movements 1 Narrative: GENERAL: Well-nourished, well-developed pleasant female patient in [facility]. SKIN: Warm and dry. No rash. Superficial abrasions to bilateral knees/shins. HEENT: Normocephalic. Atraumatic. Pupils equal and round. Mucous membranes pink and moist. CARDIOVASCULAR: Regular rate and rhythm. No murmur appreciated. RESPIRATORY: No accessory muscle use. Clear to auscultation. Breath sounds equal bilaterally. GASTROINTESTINAL: Abdomen soft, non-tender, nondistended. Normoactive bowel sounds x4. MUSCULOSKELETAL: No obvious deformities. Extremities without clubbing, cyanosis , or edema. NEUROLOGICAL: Awake and alert, oriented x 3/4. No obvious cranial nerve deficits. Moving all extremities spontaneously. Normal speech. PSYCHIATRIC: Appropriate mood and affect; insight and judgment fair. - Urinary Catheter Management Indwelling Urethral Catheter Cath placed during this visit: yes, but has since been removed by the nurse Reason for continuing: Hourly intake/output Insertion date: 12/14/17 Insertion time: 14:50 Removal date: 12/15/17 Removal time: 11:15 Results - Labs CBC & Chem 7: 12/14/17 15:00 12/16/17 11:04 Laboratory Results - last 24 hr 12/15/17 08:30 Sodium 138 Potassium 4.2 D Chloride 106 D Carbon Dioxide 21.5 Anion Gap 11 BUN 17 Creatinine 1.19 H Estimated GFR 55 L Random Glucose 94 Calcium 8.0 L Total Creatine Kinase 1579 H CK-MB (CK-2) 7.1 H CK-MB (CK-2) % 0.4 Vitamin B12 335 Folate 13.0 TSH 0.778 - Imaging Carotid Doppler Study 12/14/17 00:00 CONCLUSION: 1. Right Internal Carotid Artery: Findings indicate <50% stenosis. 2. Left Internal Carotid Artery: Findings indicate <50% stenosis. Head MRI 12/14/17 00:00 CONCLUSION: 1. Negative noncontrast MRI of the brain. Chest X-Ray 12/14/17 14:48 CONCLUSION: Underinflated examination with bibasilar interstitial opacities. This could represent interstitial pulmonary edema in the appropriate clinical setting. Head CT 12/14/17 14:50 CONCLUSION: Slight chronic small vessel ischemic and atrophic changes. . Assessment and Plan - Plan 67-year-old female presenting with Acute Encephalopathy with Syncope: questionable seizure. Symptoms now much improved. -UDS positive for benzos and cannabinoids (patient admits to smoking marijuana prior to event) -Head CT, brain MRI reviewed and unremarkable -Carotid U/S with < 50% stenosis bilaterally -EEG unremarkable, no seizure activity -Echocardiogram unremarkable with EF 5560% -TSH, B12, and folate wnl -Patient much improved with IVF hydration -Consult PT, okay to DC home with [facility] under the care of her family -Case management consulted to arrange home health care Mild Rhabdomyolysis: suspect secondary to fall, possible seizure. -Given IVF bolus in the ED -Continued IVF hydration -Trend CK, 1191 --> 1579 -- 851 -The patient was strongly encouraged to continue oral hydration after discharge, patient verbalized understanding. Acute kidney injury: Creatinine 1.61 upon arrival, previously 0.94 in March 2017. Suspect prerenal secondary to dehydration in combination with patient's HCTZ. -Continue on IVF hydration -avoid nephrotoxins -will discontinue patient's HCTZ -BMP now much improved with creatinine 0.95, resolved Hypertension: acute, labile -discontinued patient's HCTZ as above -start on low dose Norvasc 5mg daily and f/up with PCP Hypokalemia - K 2.6 -Given IV and po KCl replacement -Repeat K 4.1, resolved History of manic/Depression - per daughter was on Sertraline and Depakote, will continue - valproic acid level therapeutic Superficial skin abrasions status post fall on the left forearm and left knee -Bacitracin twice daily to areas. Recent UTI - completed course of bactrim - repeat UA negative Marijuana Use: acute. -UDS positive for cannabinoids -extensively counseled on cessation DVT Prophylaxis: Heparin sq Discharge Planning: Discharge patient to home with [facility] Condition on discharge: Stable Heart Healthy Diet as tolerated Ad Janna activity Rx written: Norvasc 5mg daily Follow-up with primary care physician within 1 week
[2017-12-16 12:13] LABS: Calcium 8.2 mg/dL (8.5-10.1); Carbon Dioxide 23.5 meq/L (21.0-32.0); Potassium 4.1 meq/L (3.5-5.1)
[2017-12-16 12:23] VITALS: TEMP 98.4
[2017-12-16 12:32] LABS: CKMB Percent 0.2 % (0.0-4.0); Creatine Kinase MB 1.9 ng/mL (0.5-3.6)
--- NOTE | 2017-12-16 12:48 | P.DCO ---
- Diagnosis (5) Rhabdomyolysis - Physical Therapy Order: Evaluate and treat, Improve ambulation, Strength and gait training - Home Health Nursing Order: Medical education, Signs/symptoms of disease process, Nursing assessment with vital signs - Certification I have seen patient Fay Lee on 12/16/17. My clinical findings support the need for the requested home health care services because: Limited mobility due to disease progression, Deconditioned with increased weakness, Medication compliance is questionable, Limited ability to care for self, Impaired cognition/judgement I certify that my clinical findings support that this patient is homebound because: Unsteady gait/balance, Unsafe to leave home unassisted, Unable to use public transportation (5) Rhabdomyolysis Qualifiers: Rhabdomyolysis type: traumatic Encounter type: initial encounter Qualified Code(s): T79.6XXA - Traumatic ischemia of muscle, initial encounter
[2017-12-16 15:48] VITALS: BP 140/63; RESP 18; O2SAT 97
[2017-12-16 16:32] VITALS: PULSE 84
== END 2017-12-16 18:24 | disposition home health service (06) ==
LOC: NEPC 14:38 → NEDA 14:38 → NEPHCDU 20:50
PROVIDERS: ADMIT Internal Medicine; ATTEND Internal Medicine